=== PATIENT | female | born 1995 | race American Indian/Alaskan Native ===

== ENCOUNTER 2017-10-01 16:23 | Emergency (ER) | payer OTHER ==
[2017-10-01 16:58] VITALS: BP 117/88
[2017-10-01 17:43] LABS: Bacteria,Urine 1+ /HPF (Negative); Bilirubin,Urine NEG (Negative); Blood,Urine MOD (Negative); Color,Urine Amber (Yellow); Granular Casts,Urine 6 /LPF; Mucus,Urine 3+ /HPF
--- NOTE | 2017-10-01 19:37 | Ultrasound Report ---
FINAL REPORT PROCEDURE: Transabdominal obstetrical ultrasound. TECHNIQUE: Real-time transabdominal sonography of the uterus, placenta, amniotic fluid, adnexa, and fetus was performed with image documentation. Measurements were obtained to determine age/size. M-mode Doppler was used to document heartbeat. CPT 31650 HISTORY: Bleeding and pain with . COMPARISON: No prior studies are available for comparison. FINDINGS: The uterus measures 8.1 centimeters x 4.4 centimeters x 6.1 centimeters. The myometrium appears fairly uniform. There may be a very small intrauterine gestational sac. This should be better evaluated with transvaginal imaging. Neither ovary is identified. There is no fluid in the cul-de-sac. IMPRESSION: Question early intrauterine gestational sac.
--- NOTE | 2017-10-01 19:42 | Ultrasound Report ---
FINAL REPORT PROCEDURE: Transvaginal obstetrical ultrasound. TECHNIQUE: Real-time transvaginal sonography of the uterus, placenta, amniotic fluid, adnexa, and fetus was performed with image documentation. Measurements were obtained to determine age/size. M-mode Doppler was used to document heartbeat. CPT 78032 HISTORY: Bleeding and pain with . COMPARISON: No prior studies are available for comparison. FINDINGS: The uterus appears homogeneous. There is a small intrauterine gestational sac. A yolk sac is visible. A definite pole is not visualized. The mean gestational sac diameter is 6.3 millimeters. This indicates a menstrual age of 5 weeks 2 days. The estimated date of confinement is 06/01/2018. There is no evidence of subchorionic hemorrhage. Both ovaries appear normal in size and demonstrate normal color flow imaging. There is no fluid in the cul-de-sac. IMPRESSION: Very early intrauterine . 2. EDC by US .
[2017-10-01 19:51] LABS: Basophils % (Auto) 0.2 % (0.0-1.8); Eosinophils % (Auto) 0.3 % (0.0-4.3); Hematocrit 34.8 % (30.3-42.9); Hemoglobin 10.9 gm/dl (10.1-14.3); Lymphocytes # (Auto) 1.1 K/mm3 (1.2-5.4); Lymphocytes % (Auto) 11.1 % (13.4-35.0); Mean Corpuscular HGB Conc 31 % (30-34); Monocytes # (Auto) 1.1 K/mm3 (0.0-0.8); Platelet Count 288 K/mm3 (140-440); Red Blood Count 5.01 M/mm3 (3.65-5.03); Red Cell Distribution Width 16.5 % (13.2-15.2)
--- NOTE | 2017-10-01 20:03 | Emergency Department Report ---
ED Female HPI - General Chief complaint: Vaginal Bleeding Stated complaint: /VAGINAL BLEEDING Time Seen by Provider: 10/01/17 19:47 Source: patient Mode of arrival: Ambulatory Limitations: No Limitations - History of Present Illness Initial comments: Patient is 22-year-old -Beninese female A1 patient same 3 days ago in ED workup negative for STI positive for last menstrual period 5 weeks ago presents today for dysuria frequency and urgency denies new vaginal discharge and states some pink spotting no fever no chills no nausea no vomiting no back pain denies likelihood of STI MD Complaint: dysuria Onset/Timin -: week(s) Severity: moderate Severity scale (0 -10): 3 Quality: cramping Consistency: intermittent Improves with: none Worsens with: urination Are you Now?: Yes Last Menstrual Period: 08/18/17 EDC: 05/25/18 Associated Symptoms: dysuria. denies: fever/chills - Related Data Sexually active: Yes : 2 Para: 0 A: 1 (miscarriage 1 yr ago ) Previous Rx's Medication Instructions Recorded Last Taken Type Nitrofurantoin Monohyd/M-Cryst 100 mg PO BID #14 capsule 10/01/17 Unknown Rx [Macrobid 100 mg Capsule] Allergies Allergy/AdvReac Type Severity Reaction Status Date / Time No Known Allergies Allergy Unverified 10/01/17 16:58 ED Review of Systems ROS: Stated complaint: /VAGINAL BLEEDING Other details as noted in HPI Constitutional: denies: chills, fever Eyes: denies: eye pain, eye discharge, vision change ENT: denies: ear pain, throat pain Respiratory: denies: cough, shortness of breath, wheezing Cardiovascular: denies: chest pain, palpitations Endocrine: no symptoms reported Gastrointestinal: denies: abdominal pain, nausea, diarrhea Genitourinary: dysuria, frequency, hematuria. denies: urgency, discharge, abnormal menses, dyspareunia Musculoskeletal: denies: back pain, joint swelling, arthralgia Skin: denies: rash, lesions Neurological: denies: headache, weakness, paresthesias Psychiatric: denies: anxiety, depression Hematological/Lymphatic: denies: easy bleeding, easy bruising ED Past Medical Hx - Past Medical History Previous Medical History?: No - Social History Smoking Status: Current Every Day Smoker Substance Use Type: None - Medications Home Medications: Home Medications Medication Instructions Recorded Confirmed Last Taken Type Nitrofurantoin Monohyd/M-Cryst 100 mg PO BID #14 capsule 10/01/17 Unknown Rx [Macrobid 100 mg Capsule] ED Physical Exam - General Limitations: No Limitations General appearance: alert, in no apparent distress - Head Head exam: Present: atraumatic, normocephalic - Eye Eye exam: Present: normal appearance - ENT ENT exam: Present: mucous membranes moist - Neck Neck exam: Present: normal inspection - Respiratory Respiratory exam: Present: normal lung sounds bilaterally. Absent: respiratory distress - Cardiovascular Cardiovascular Exam: Present: regular rate, normal rhythm. Absent: systolic murmur, diastolic murmur, rubs, gallop - GI/Abdominal GI/Abdominal exam: Present: soft, normal bowel sounds. Absent: distended, tenderness, guarding, rebound, rigid, mass, bruit, pulsatile mass, hernia - Rectal Rectal exam: Present: deferred - External exam: Present: other (exam deferred per patient) - Extremities Exam Extremities exam: Present: normal inspection - Back Exam Back exam: Present: normal inspection, full ROM. Absent: tenderness, CVA tenderness (R), CVA tenderness (L), muscle spasm, paraspinal tenderness, vertebral tenderness, rash noted - Neurological Exam Neurological exam: Present: alert, oriented X3, CN II-XII intact, normal gait, reflexes normal - Psychiatric Psychiatric exam: Present: normal affect, normal mood - Skin Skin exam: Present: warm, dry, intact, normal color. Absent: rash ED Course Vital Signs 10/01/17 16:54 Temperature 99.3 F Pulse Rate 98 H Respiratory 18 Rate Blood Pressure 117/88 O2 Sat by Pulse 99 Oximetry ED Medical Decision Making - Lab Data Result diagrams: 10/01/17 19:33 Laboratory Tests 10/01/17 10/01/17 10/01/17 17:04 17:04 17:08 [place] % (Auto) Eos % (Auto) [place] # Eos # Baso # Seg Neutrophils % Seg Neutrophils # HCG, Quant 3284 H Urine Color [place] Urine Turbidity Clear Urine pH 5.0 Ur Specific [place] 1.031 H Urine Protein 100 mg/dl Urine Glucose (UA) Neg Urine Ketones 20 Urine Blood Mod Urine Nitrite Neg Urine Bilirubin Neg Urine Urobilinogen 4.0 Ur Leukocyte Esterase Mod Urine WBC (Auto) 16.0 H Urine RBC (Auto) 20.0 U Epithel Cells (Auto) 8.0 Urine Bacteria (Auto) 1+ Granular Casts 6 Urine Mucus 3+ Blood Type O POSITIVE 10/01/17 19:33 [place] % (Auto) 11.0 H Eos % (Auto) 0.3 [place] # 1.1 H Eos # 0.0 Baso # 0.0 Seg Neutrophils % 77.4 H Seg Neutrophils # 7.5 HCG, Quant Urine Color Urine Turbidity Urine pH Ur Specific [place] Urine Protein Urine Glucose (UA) Urine Ketones Urine Blood Urine Nitrite Urine Bilirubin Urine Urobilinogen Ur Leukocyte Esterase Urine WBC (Auto) Urine RBC (Auto) U Epithel Cells (Auto) Urine Bacteria (Auto) Granular Casts Urine Mucus Blood Type - Radiology Data Radiology results: report reviewed, image reviewed US single IUP, Gest age 5w, 6 days - Medical Decision Making This is a UTI during plan Macrobid 7 days follow-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 ED Disposition Clinical Impression: UTI (urinary tract infection) during Qualifiers: Trimester: first trimester Qualified Code(s): O23.41 - Unspecified infection of urinary tract in , first trimester Disposition: DC-01 TO HOME OR SELFCARE Is pt being admited?: No Does the pt Need Aspirin: No Condition: Good Instructions: Urinary Tract Infection in Women (ED) Prescriptions: Nitrofurantoin Monohyd/M-Cryst [Macrobid 100 mg Capsule] 100 mg PO BID #14 capsule Referrals: ARVIN MARVIN MD [Staff Physician] - 3-5 Days Forms: Work/School Release Form(ED) Time of Disposition: 20:08
[2017-10-01 20:05] LABS: Mean Corpuscular Hemoglobin 22 pg (28-32); Mean Corpuscular Volume 70 fl (79-97)
== END 2017-10-01 20:10 | disposition home or self-care (01) ==
LOC: ED 16:23
DX: O23.41 Unspecified infection of urinary tract in pregnancy, first trimester (principal); Z3A.01 Less than 8 weeks gestation of pregnancy; O99.331 Smoking (tobacco) complicating pregnancy, first trimester
CPT/HCPCS: 36415; 76801; 76817; 81001; 84702; 85025; 86900; 86901; 99284

== ENCOUNTER 2017-11-28 17:37 | Emergency (ER) | payer OTHER ==
[2017-11-28 17:48] VITALS: BP 121/80
[2017-11-28 18:29] LABS: Bilirubin,Urine NEG (Negative); Blood,Urine NEG (Negative); Color,Urine Yellow (Yellow); Mucus,Urine 3+ /HPF; RBC,Urine < 1.0 /HPF (0.0-6.0); Urobilinogen,Urine < 2.0 mg/dL (<2.0)
[2017-11-28 18:52] LABS: Basophils % (Auto) 0.4 % (0.0-1.8); Eosinophils # (Auto) 0.1 K/mm3 (0.0-0.4); Eosinophils % (Auto) 0.6 % (0.0-4.3); Hematocrit 35.8 % (30.3-42.9); Hemoglobin 11.3 gm/dl (10.1-14.3); Lymphocytes # (Auto) 1.6 K/mm3 (1.2-5.4); Lymphocytes % (Auto) 16.4 % (13.4-35.0); Mean Corpuscular HGB Conc 32 % (30-34); Monocytes # (Auto) 0.8 K/mm3 (0.0-0.8); Monocytes % (Auto) 8.2 % (0.0-7.3); Platelet Count 279 K/mm3 (140-440); Red Cell Distribution Width 17.2 % (13.2-15.2)
[2017-11-28 19:05] LABS: Mean Corpuscular Volume 69 fl (79-97)
[2017-11-28 19:06] LABS: Mean Corpuscular Hemoglobin 22 pg (28-32)
[2017-11-28 19:35] LABS: Alanine Aminotransferase 11 units/L (7-56); Albumin 4.5 g/dL (3.9-5); BUN/Creatinine Ratio 18; Blood Urea Nitrogen 11 mg/dL (7-17); Calcium 9.9 mg/dL (8.4-10.2); Hemolysis Index 0
== END 2017-11-29 01:26 | disposition left against medical advice (07) ==
LOC: ED 17:37
DX: R07.9 Chest pain, unspecified (principal); Z53.21 Procedure and treatment not carried out due to patient leaving prior to being seen by health care provider
CPT/HCPCS: 36415; 80053; 81001; 84702; 85025

== ENCOUNTER 2018-05-24 02:47 | Inpatient (IN) | payer OTHER ==
[2018-05-24] MEDS ORDERED: LACTATED RINGERS 1,000 ML ONE (03:37)
[2018-05-24] MEDS ORDERED: MINERAL OIL PO PRN (03:53)
[2018-05-24] MEDS ORDERED: BRETHINE IVP PRN (03:53)
[2018-05-24] MEDS ORDERED: BRETHINE SUB-Q PRN (03:53)
[2018-05-24] MEDS ORDERED: XYLOCAINE 2% INFILTRATI ONE (03:53)
[2018-05-24] MEDS ORDERED: STADOL IV PRN (03:53)
[2018-05-24] MEDS ORDERED: PEPCID IV ONE (03:55)
[2018-05-24] MEDS ORDERED: PITOCin/NS 20 UNIT/1000ML DRIP 20 UNITS/1,000 ML BAG IV SCH (04:00)
[2018-05-24] MEDS ORDERED: PITOCin/NS 30 UNIT/500ML 30 UNITS/500 ML BAG IV SCH (04:00)
[2018-05-24] MEDS: LACTATED RINGERS 1,000 ML IV SCH ×2 (04:21→11:08)
[2018-05-24] MEDS ORDERED: ZOFRAN IV PRN ×2 (04:27→16:04)
[2018-05-24] MEDS ORDERED: ZOFRAN ONE (04:31)
[2018-05-24 04:45] LABS: Hemoglobin 8.7 gm/dl (10.1-14.3); Mean Corpuscular HGB Conc 32 % (30-34); Platelet Count 192 K/mm3 (140-440); Red Blood Count 4.14 M/mm3 (3.65-5.03); Red Cell Distribution Width 18.1 % (13.2-15.2)
[2018-05-24 04:51] LABS: Mean Corpuscular Volume 65 fl (79-97)
[2018-05-24] MEDS ORDERED: BENADRYL IV PRN (07:18)
[2018-05-24] MEDS ORDERED: fentaNYL-BUPIV 2 MCG/ML-0.125% 200 MCG/100 ML BAG EPIDURAL ONE (11:05)
[2018-05-24] MEDS ORDERED: XYLOCAINE 2%/ EPI 1:200,000 INFILTRATI ONE (11:54)
[2018-05-24] MEDS ORDERED: SUBLIMAZE ONE (11:54)
--- NOTE | 2018-05-24 12:14 | History and Physical Report ---
History of Present Illness Date of examination: 05/24/18 Date of admission: 05/24/18 03:54 Chief complaint: My water broke History of present illness: 22 yo AA fe , RUCHI 06/02/18 (LMP), 38w5d, presents to L&D with c/o SROM 05/24/18 at 01:20 am. Pt initiated care with life Cycle Inspector Automatic Typewriter 9w4d. Early complicated with N&V and UTI (HELEN Negative 01/18/18). Pt taking FeS04 for anemia and D3 for Vit D deficiency. Otherwise, uneventful. O positive, GBS negative, Rubella Immune. 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 denies: smoking, alcohol abuse, prescription drug abuse, IV drug use - Obstetrical History Expected Date of Delivery: 06/02/18 Actual Gestation: 38 Week(s) 5 Day(s) : 2 Para: 0 Hx # Term Pregnancies: 0 Number of Pregnancies: 0 Spontaneous Abortions: 1 Induced : 0 Number of Living Children: 0 Medications and Allergies Allergies Allergy/AdvReac Type Severity Reaction Status Date / Time No Known Allergies Allergy Unverified 10/01/17 16:58 Home Medications Medication Instructions Recorded Confirmed Last Taken Type Metoclopramide HCl [Reglan TAB] 5 mg PO TIDAC PRN 10 Days #30 03/22/18 Unknown Rx tablet Ondansetron [Zofran ODT TAB] 8 mg PO Q8HR PRN 10 Days #30 03/22/18 Unknown Rx tab.rapdis Ondansetron [Zofran TAB] 4 mg PO Q8HR PRN 03/22/18 03/22/18 03/20/18 History Active Meds: Active Medications Butorphanol Tartrate (Stadol) 2 mg IV Q2H PRN PRN Reason: Pain , Severe (7-10) Last Admin: 05/24/18 06:52 Dose: 2 mg Documented by: Diphenhydramine HCl (Benadryl) 25 mg IV Q6H PRN PRN Reason: Itching Ephedrine Sulfate (Ephedrine Sulfate) 10 mg IV Q2M PRN PRN Reason: Hypotension Lactated Ringer's (Lactated Ringers) 1,000 mls @ 125 mls/hr IV DIRECT IBRAHIMA Last Admin: 05/24/18 11:08 Dose: 125 mls/hr Documented by: Oxytocin/Sodium Chloride (Pitocin/Ns 20 Unit/1000ml Drip) 20 units in 1,000 mls @ 125 mls/hr IV DIRECT IBRAHIMA Oxytocin/Sodium Chloride (Pitocin/Ns 30 Unit/500ml) 30 units in 500 mls @ 1 mls/hr IV TITR IBRAHIMA; Protocol Last Titration: 05/24/18 09:45 Dose: 6 mls/hr, 6 mls/hr Documented by: Mineral Oil (Mineral Oil) 30 ml PO QHS PRN PRN Reason: Constipation Ondansetron HCl (Zofran) 4 mg IV Q8H PRN PRN Reason: Nausea And Vomiting Last Admin: 05/24/18 09:30 Dose: 4 mg Documented by: Terbutaline Sulfate (Brethine) 0.25 mg SUB-Q ONCE PRN PRN Reason: Hyperstimulation/Hypertonicity Terbutaline Sulfate (Brethine) 0.25 mg IVP ONCE PRN PRN Reason: Hyperstimulation/Hypertonicity Review of Systems Cardiovascular: no chest pain, no shortness of breath, no high blood pressure Respiratory: no cough, no shortness of breath Breasts: normal Gastrointestinal: no abdominal pain, no nausea, no vomiting, no diarrhea, no constipation Genitourinary: normal appearance, leakage of fluid, contractions (occasional ) Integumentary: no rash, no sores, no lesions - Vital Signs Vital signs: Vital Signs Pulse BP 72 127/81 05/24/18 03:06 05/24/18 03:06 Temp Pulse Resp BP Pulse Ox 98.1 F 66 20 129/71 92 05/24/18 08:53 05/24/18 12:08 05/24/18 06:00 05/24/18 11:30 05/24/18 12:08 - Physical Exam Breasts: Positive: normal Cardiovascular: Regular rate, Normal S1, Normal S2, No murmurs Lungs: Positive: Clear to auscultation, Normal air movement Abdomen: Positive: normal appearance, soft, normal bowel sounds. Negative: distention, tenderness Genitourinary (Female): Positive: normal external genitalia, normal perenium Vulva: both: normal Vagina: Positive: other (leaking clear fluid) Uterus: Positive: enlarged (gravid) Anus/Rectum: Positive: normal perianal skin Extremities: Positive: normal Deep Tendon Reflex Grade: Normal +2 - Obstetrical FHR: category 1 Uterine Contraction Monitor Mode: External Cervical Dilatation: 3 (Per RN at last exam) Cervical Effacement Percentage: 75 station: -2 Uterine Contraction Pattern: Irregular Uterine Tone Measurement Phase: Resting Uterine Contraction Intensity: Moderate Results Result Diagrams: 05/24/18 03:47 Abnormal lab results 05/24/18 Range/Units 03:47 Hgb 8.7 L (10.1-14.3) gm/dl Hct 27.0 L (30.3-42.9) % MCV 65 L (79-97) fl MCH 21 L (28-32) pg RDW 18.1 H (13.2-15.2) % All other labs normal. Assessment and Plan A: Term IUP at 38w5d Asymptomatic Anemia Category 1 tracing GBS Negative SROM 05/24/18 @ 01:20, clear fluid P: Admit to L&D; Routine labor orders Pitocin Augmentation May have IV pain med/epidural PRN Anticipate
[2018-05-24] MEDS ORDERED: NARCAN 2 MG/2 ML IV PRN (12:22)
--- NOTE | 2018-05-24 12:24 | Anesthesia Consultation ---
Anesthesia Consult and Med Hx Date of service: 05/24/18 - Airway Anesthetic Teeth Evaluation: Good ROM Head & Neck: Adequate Mental/Hyoid Distance: Adequate Mallampati Class: Class I Intubation Access Assessment: Good - Pulmonary Exam CTA: Yes - Cardiac Exam Cardiac Exam: RRR - Pre-Operative Health Status ASA Pre-Surgery Classification: ASA2 Proposed Anesthetic Plan: Epidural - Pulmonary Hx Smoking: No Hx Asthma: No - Cardiovascular System Hx Hypertension: No Hx Coronary Artery Disease: No Hx Cardia Arrhythmia: No - Central Nervous System Hx Neuromuscular Disorder: No Hx Seizures: No Hx Psychiatric Problems: No - Gastrointestinal Hx Ulcer: No - Endocrine Hx Renal Disease: No Hx Insulin Dependent Diabetes: No Hx Non-Insulin Dependent Diabetes: No Hx Hypothyroidism: No Hx Hyperthyroidism: No - Hematic Hx Anemia: Yes Hx Sickle Cell Disease: No - Other Systems Hx Alcohol Use: No Hx Obesity: No
[2018-05-24] MEDS ORDERED: fentaNYL-BUPIV 2 MCG/ML-0.125% 200 MCG/100 ML BAG EPIDURAL SCH (13:00)
[2018-05-24] MEDS ORDERED: DERMOPLAST TP PRN (16:04)
[2018-05-24] MEDS ORDERED: BENADRYL PO PRN (16:04)
[2018-05-24] MEDS ORDERED: TYLENOL PO PRN (16:04)
[2018-05-24] MEDS ORDERED: ANUCORT-HC PR PRN (16:04)
[2018-05-24] MEDS ORDERED: LANSINOH TP PRN (16:04)
[2018-05-24] MEDS ORDERED: DULCOLAX PR PRN (16:04)
[2018-05-24] MEDS ORDERED: PHENERGAN PO PRN (16:04)
[2018-05-24] MEDS ORDERED: NORCO 5/325 PO PRN (16:04)
[2018-05-24] MEDS ORDERED: MILK OF MAGNESIA PO PRN (16:04)
--- NOTE | 2018-05-24 16:15 | Procedure Note ---
OB Delivery Note - Delivery Date of Delivery: 05/24/18 (15:42) Surgeon: SWATHI ANN (AMALIA) Estimated blood loss: 100cc - Vaginal Delivery presentation: vertex Delivery position: OA Intrapartum events: mult.variable deceleratio Delivery induction: none Delivery augmentation: pitocin Delivery monitor: external FHT, external uterine Route of delivery: (15:42) Delivery placenta: spontaneous (15:49) Delivery cord: 3 umbilical vessels Episiotomy: none Delivery laceration: 1st degree (small first degree; approximates well; left unrepaired) Anesthesia: epidural Delivery comments: viable female infant MAXINE position at 15:42. NICU and RT present at at time of delivery for repetitive variable decels. Loud lusty cry. placed [id number] and NICU/RT dismissed. Delayed cord clamping, then cut by pt mother with my guidance. Cord blood collected per hospital protocol. Spontaneous philip delivery of intact placenta at 15:49. Discarded. Small 1st degree laceration, approximates well; left unrepaired. FF@U-2. Small lochia. EBL 100cc. and mother left in stable condition in L&D. - A at 1 minute: 8 at 5 minutes: 9 Gender: Female (4lbs 15lbs, 2233grams, 18")
[2018-05-24] MEDS ORDERED: SODIUM CHLORIDE FLUSH SYRINGE 10 ML IV NR (17:00)
--- NOTE | 2018-05-24 21:35 | Post Anesthesia Evaluation ---
- Post Anesthesia Evaluation Patient Participated: Yes Airway Patent: Yes Stable Respiratory Function: Yes Nausea/Vomiting: No Temp > 96.8F: Yes Pain Manageable: Yes Adequeate Hydration: Yes Anesthesia Complications: No Block Receding Appropriately: Yes Patient on Ventilator: No
[2018-05-25] MEDS: TUCKS PAD TP PRN
[2018-05-25] MEDS: IBUPROFEN PO SCH ×3 (05:34→23:31)
[2018-05-25 05:41] LABS: Hematocrit 24.8 % (30.3-42.9); Hemoglobin 7.8 gm/dl (10.1-14.3)
--- NOTE | 2018-05-25 09:48 | Progress Note ---
Assessment and Plan A: 22 yo, , PPD 1 Anemia Vit D deficiency P: Continue PP orders Infed 100 mg IM x 1 dose Iron 325 mg po tid D/C home tomorrow Subjective - Subjective Date of service: 05/25/18 Principal diagnosis: Patient reports: appetite normal, voiding normally, pain well controlled, ambulating normally : doing well, other (and breast feeding), bottle feeding Objective - Vital Signs Latest vital signs: Vital Signs Temp Pulse Resp BP BP Pulse Ox 05/25/18 01:20 98.2 F 60 20 125/72 97 05/25/18 00:00 20 05/24/18 21:25 98.0 F 73 20 122/69 99 05/24/18 18:15 98.1 F 62 18 128/79 05/24/18 17:57 64 99 05/24/18 17:14 68 127/63 05/24/18 17:00 63 138/65 05/24/18 16:45 63 143/65 05/24/18 15:32 123 H 139/63 05/24/18 15:16 67 119/58 05/24/18 15:00 72 131/65 05/24/18 14:44 86 124/56 05/24/18 14:31 93 H 116/62 05/24/18 14:15 74 114/59 05/24/18 13:58 75 105/55 05/24/18 13:54 73 107/54 05/24/18 13:48 81 118/55 05/24/18 13:40 100 H 113/56 05/24/18 13:34 88 120/61 05/24/18 13:28 129 H 122/57 05/24/18 13:21 88 84 05/24/18 13:19 95 H 91 05/24/18 13:18 107 H 117/58 05/24/18 13:15 53 L 75 L 05/24/18 13:12 139 H 168/62 05/24/18 13:10 101 H 124/55 82 L 05/24/18 13:08 87 92/55 05/24/18 13:07 78 107/53 0 L 05/24/18 13:05 94 H 100 05/24/18 13:02 99 H 78 L 05/24/18 13:00 82 153/65 100 05/24/18 12:59 114 H 167/63 05/24/18 12:56 95 H 109/52 05/24/18 12:55 88 116/58 100 05/24/18 12:54 107 H 123/61 05/24/18 12:52 76 118/58 05/24/18 12:50 103 H 113/60 05/24/18 12:49 100 H 85 05/24/18 12:48 73 112/59 05/24/18 12:47 82 99 05/24/18 12:46 58 L 117/65 05/24/18 12:44 100 H 113/68 05/24/18 12:42 76 118/70 99 05/24/18 12:41 79 72 L 05/24/18 12:40 59 L 111/66 05/24/18 12:38 71 118/72 05/24/18 12:37 108 H 100 05/24/18 12:36 100 H 111/69 05/24/18 12:34 80 124/66 05/24/18 12:32 72 117/72 100 05/24/18 12:30 78 124/72 05/24/18 12:28 90 113/60 05/24/18 12:27 83 98 05/24/18 12:26 113 H 111/68 05/24/18 12:24 93 H 122/72 05/24/18 12:22 94 H 114/68 100 05/24/18 12:20 115 H 123/82 05/24/18 12:18 108 H 117/59 05/24/18 12:17 110 H 98 05/24/18 12:16 74 124/57 05/24/18 12:15 103 H 92 05/24/18 12:12 82 100 05/24/18 12:08 66 92 05/24/18 12:07 83 100 05/24/18 12:02 78 97 05/24/18 11:30 71 129/71 05/24/18 10:31 61 140/72 Intake and Output 05/24/18 05/25/18 05/25/18 23:59 07:59 15:59 Intake Total 480 Output Total 300 Balance -300 480 Intake: Oral 480 Output: Urine 300 Void 300 Other: Total, Intake Amount 240 Total, Output Amount 300 # Voids Void 300 1 Estimated Blood Loss 100 - Exam Breasts: Present: normal Cardiovascular: Present: Regular rate, Normal S1, Normal S2 Lungs: Present: Clear to auscultation, Normal air movement Abdomen: Present: normal appearance, normal bowel sounds Uterus: Present: firm, fundal height below umbilicus (U-2) Extremities: Present: normal Deep Tendon Reflex Grade: Normal +2 - Labs Labs: Abnormal lab results 05/25/18 Range/Units 05:27 Hgb 7.8 L (10.1-14.3) gm/dl Hct 24.8 L (30.3-42.9) %
--- NOTE | 2018-05-25 09:58 | Discharge Summary ---
<JAJA HOFFMAN - Last Filed: 05/25/18 09:54> Providers - Providers Date of Admission: 05/24/18 03:54 Date of discharge: 05/26/18 Attending physician: CRISTHIAN FINE MD Primary care physician: CRISTHIAN FINE MD Hospitalization Delivery: Episiotomy: none Laceration: 1st degree complications: other (Anemia) Discharge diagnosis: IUP at term delivered [place] baby: female Hospital course: See Admission H&P; OB delivery summary and; PP notes Condition at discharge: Stable Disposition: DC-01 TO HOME OR SELFCARE - Discharge Diagnoses (1) Anemia Status: Acute (2) (normal spontaneous vaginal delivery) Status: Acute Plan - Provider Discharge Summary Activity: routine, no sex for 6 weeks, no heavy lifting 4 weeks, no strenuous exercise Diet: routine Instructions: routine (Continue Iron by mouth three times per day with OJ at home following discharge.) Additional instructions: [] Smoking cessation referral if applicable(refer to patient education folder for contact #) [] Refer to [facility] Booklet Call your doctor immediately for: * Fever > 100.5 * Heavy vaginal bleeding ( >1 pad per hour) * Severe persistent headache * Shortness of breath * Reddened, hot, painful area to leg or breast * Drainage or odor from incision. * Keep incision clean and dry at all times and follow doctor's instructions regarding bathing/showering - Follow up plan Follow up: CRISTHIAN FINE MD [Primary Care Provider] - 6 Weeks <ADAM PUGH - Last Filed: 06/02/18 14:40> Providers - Providers Date of Admission: 05/24/18 03:54 Attending physician: CRISTHIAN FINE MD Primary care physician: CRISTHIAN FINE MD Hospitalization - Discharge Diagnoses (1) Anemia associated with acute blood loss Status: Acute (2) Anemia Status: Acute Plan - Provider Discharge Summary Additional instructions: [] Smoking cessation referral if applicable(refer to patient education folder for contact #) [] Refer to [facility] Booklet Call your doctor immediately for: * Fever > 100.5 * Heavy vaginal bleeding ( >1 pad per hour) * Severe persistent headache * Shortness of breath * Reddened, hot, painful area to leg or breast * Drainage or odor from incision. * Keep incision clean and dry at all times and follow doctor's instructions regarding bathing/showering
[2018-05-25] MEDS ORDERED: INFED IM NR (10:30)
[2018-05-25] MEDS: FEOSOL PO SCH ×2 (13:23→23:31)
[2018-05-25] MEDS: COLACE PO SCH (23:31)
[2018-05-26] MEDS: IBUPROFEN PO SCH ×3 (05:26→17:30)
[2018-05-26] MEDS: COLACE PO SCH ×2 (10:00→10:30)
[2018-05-26] MEDS: FEOSOL PO SCH ×2 (10:00→10:30)
[2018-05-26] MEDS: TUCKS PAD TP PRN ×2 (14:00→14:01)
[2018-05-26 17:49] VITALS: BP 117/63
== END 2018-05-26 18:15 | disposition home or self-care (01) | DRG 775 ==
LOC: TRG 02:47 → LD 03:54 → TRG 03:54 → OB 18:18
PROVIDERS: ADMIT Obstetrics & Gynecology; ATTEND Obstetrics & Gynecology
PROC: 10E0XZZ Delivery of Products of Conception, External Approach (ICD-10-PCS; principal; 2018-05-24)
PROC: 3E0R3BZ Introduction of Anesthetic Agent into Spinal Canal, Percutaneous Approach (ICD-10-PCS; 2018-05-24)
PROC: 00HU33Z Insertion of Infusion Device into Spinal Canal, Percutaneous Approach (ICD-10-PCS; 2018-05-24)
DX: O76 Abnormality in fetal heart rate and rhythm complicating labor and delivery (principal); Z3A.38 38 weeks gestation of pregnancy; Z37.0 Single live birth; D64.9 Anemia, unspecified; O99.02 Anemia complicating childbirth; Z83.3 Family history of diabetes mellitus; Z82.49 Family history of ischemic heart disease and other diseases of the circulatory system; E55.9 Vitamin D deficiency, unspecified; O99.284 Endocrine, nutritional and metabolic diseases complicating childbirth; O70.0 First degree perineal laceration during delivery
CPT/HCPCS: 36415; 85014; 85018; 85027; 86592; 86850; 86900; 86901; G0378; J0595; J1200; J1750; J2405; J2590; J3010; J7120

== ENCOUNTER 2018-05-30 22:05 | Inpatient (IN) | payer OTHER ==
--- NOTE | 2018-05-30 23:09 | Emergency Department Report ---
ED General Adult HPI - General Chief complaint: Chest Pain Stated complaint: HBP/ALVARADO/BACK PAIN/CP Time Seen by Provider: 05/30/18 22:34 Source: patient Mode of arrival: Ambulatory Limitations: No Limitations - History of Present Illness Initial comments: Patient is 22 years old female. 2 para 1. Patient is 6 days status post normal spontaneous vaginal delivery. Patient presented to the ER complaining of headache since yesterday associated with increased blood pressure patient stated that she's been taking her blood pressure has been in range of 130-150/90-98. Patient also is complaining of lower back pain. Patient also complaint of chest pain that comes and goes. Patient denied any fever, chills, nausea or vomiting. No weakness numbness or tingling sensation. Severity scale (0 -10): 4 - Related Data Home Medications Medication Instructions Recorded Confirmed Last Taken Ondansetron [Zofran TAB] 4 mg PO Q8HR PRN 03/22/18 05/24/18 1 Day Ago ~05/23/18 Previous Rx's Medication Instructions Recorded Last Taken Type Metoclopramide HCl [Reglan TAB] 5 mg PO TIDAC PRN 10 Days #30 03/22/18 1 Day Ago Rx tablet ~05/23/18 Ondansetron [Zofran ODT TAB] 8 mg PO Q8HR PRN 10 Days #30 03/22/18 2 Days Ago Rx tab.rapdis ~05/22/18 Ferrous Sulfate [Feosol 325 MG tab] 325 mg PO BID tablet 05/25/18 Unknown Rx Allergies Allergy/AdvReac Type Severity Reaction Status Date / Time No Known Allergies Allergy Unverified 10/01/17 16:58 ED Review of Systems ROS: Stated complaint: HBP/ALVARADO/BACK PAIN/CP Other details as noted in HPI Comment: All other systems reviewed and negative Constitutional: denies: chills, fever Respiratory: denies: cough, orthopnea, shortness of breath, SOB with exertion, SOB at rest Cardiovascular: chest pain. denies: palpitations, dyspnea on exertion Gastrointestinal: denies: abdominal pain, nausea, vomiting, diarrhea, constipation, hematemesis, melena, hematochezia Musculoskeletal: back pain Neurological: headache. denies: weakness, numbness, paresthesias, confusion, abnormal gait ED Past Medical Hx - Past Medical History Previous Medical History?: No Hx Hypertension: No Hx Diabetes: No Hx Deep Vein Thrombosis: No Hx Renal Disease: No Hx Sickle Cell Disease: No Hx Seizures: No Hx Asthma: No Hx HIV: No - Surgical History Past Surgical History?: No - Social History Smoking Status: Never Smoker Substance Use Type: None - Medications Home Medications: Home Medications Medication Instructions Recorded Confirmed Last Taken Type Metoclopramide HCl [Reglan TAB] 5 mg PO TIDAC PRN 10 Days #30 03/22/18 05/24/18 1 Day Ago Rx tablet ~05/23/18 Ondansetron [Zofran ODT TAB] 8 mg PO Q8HR PRN 10 Days #30 03/22/18 05/24/18 2 Days Ago Rx tab.rapdis ~05/22/18 Ondansetron [Zofran TAB] 4 mg PO Q8HR PRN 03/22/18 05/24/18 1 Day Ago History ~05/23/18 Ferrous Sulfate [Feosol 325 MG tab] 325 mg PO BID tablet 05/25/18 Unknown Rx ED Physical Exam - General Limitations: No Limitations General appearance: alert, in no apparent distress - Head Head exam: Present: atraumatic, normocephalic, normal inspection - Eye Eye exam: Present: normal appearance, PERRL - ENT ENT exam: Present: normal exam, normal orophraynx, mucous membranes moist - Neck Neck exam: Present: normal inspection, full ROM. Absent: tenderness, meningismus, lymphadenopathy, thyromegaly - Respiratory Respiratory exam: Present: normal lung sounds bilaterally. Absent: respiratory distress, wheezes, rales, rhonchi, chest wall tenderness, accessory muscle use, decreased breath sounds, prolonged expiratory - Cardiovascular Cardiovascular Exam: Present: regular rate, normal rhythm, normal heart sounds - GI/Abdominal GI/Abdominal exam: Present: soft, normal bowel sounds. Absent: distended, tenderness, guarding, rebound, rigid, organomegaly, mass, bruit, pulsatile mass, hernia - Extremities Exam Extremities exam: Present: normal inspection, full ROM, normal capillary refill. Absent: pedal edema, calf tenderness - Back Exam Back exam: Present: normal inspection, full ROM. Absent: tenderness, CVA tenderness (R), CVA tenderness (L), muscle spasm, paraspinal tenderness, vertebral tenderness - Neurological Exam Neurological exam: Present: alert, oriented X3, CN II-XII intact, normal gait, reflexes normal - Skin Skin exam: Present: warm, intact, normal color ED Course Vital Signs 05/30/18 05/30/18 05/30/18 22:41 22:44 22:45 Temperature 98 F Pulse Rate 57 L 61 71 Respiratory 16 18 11 L Rate Blood Pressure 145/89 O2 Sat by Pulse 99 100 Oximetry ED Medical Decision Making - Lab Data Result diagrams: 05/30/18 23:04 05/30/18 23:04 - Medical Decision Making Patient is 22 years old female. 2 para 1. Patient is 6 days status post normal spontaneous vaginal delivery. Patient presented to the ER complaining of headache since yesterday associated with increased blood pressure patient stated that she's been taking her blood pressure has been in range of 130-150/90-98. Patient also is complaining of lower back pain. Patient also complaint of chest pain that comes and goes. Patient denied any fever, chills, nausea or vomiting. No weakness numbness or tingling sensation. I discussed the patient is Dr. Jean-Claude Carmona, he advised to admit patient to mother and baby for rule out of preeclampsia. Critical Care Time: Yes Critical care time in (mins) excluding proc time.: 30 Critical care attestation.: If time is entered above; I have spent that time in minutes in the direct care of this critically ill patient, excluding procedure time. ED Disposition Clinical Impression: Preeclampsia, Chest pain, UTI (urinary tract infection) Disposition: OP ADMIT IP TO THIS HOSP Is pt being admited?: Yes Condition: Stable Instructions: Chest Pain (ED), Hypertension (ED) Referrals: RUDOLPH JUAN MD [Primary Care Provider] - 3-5 Days
[2018-05-30 23:41] LABS: Alanine Aminotransferase 19 units/L (7-56); Albumin 3.5 g/dL (3.9-5); BUN/Creatinine Ratio 13; Blood Urea Nitrogen 8 mg/dL (7-17); Calcium 8.7 mg/dL (8.4-10.2); Hemolysis Index 3
[2018-05-31 00:45] LABS: Bacteria,Urine 2+ /HPF (Negative); Bilirubin,Urine NEG (Negative); Blood,Urine LG (Negative); Color,Urine Amber (Yellow); Mucus,Urine 3+ /HPF
[2018-05-31 00:47] LABS: WBC,Urine > 182.0 /HPF (0.0-6.0)
[2018-05-31 00:57] LABS: Basophils % (Auto) 0.2 % (0.0-1.8); Eosinophils % (Auto) 0.2 % (0.0-4.3); Hematocrit 31.9 % (30.3-42.9); Hemoglobin 9.8 gm/dl (10.1-14.3); Lymphocytes # (Auto) 1.2 K/mm3 (1.2-5.4); Lymphocytes % (Auto) 11.3 % (13.4-35.0); Mean Corpuscular HGB Conc 31 % (30-34); Monocytes # (Auto) 1.1 K/mm3 (0.0-0.8); Monocytes % (Auto) 10.5 % (0.0-7.3); Platelet Count 293 K/mm3 (140-440); Red Blood Count 4.73 M/mm3 (3.65-5.03); Red Cell Distribution Width 19.5 % (13.2-15.2)
[2018-05-31 01:00] LABS: Mean Corpuscular Volume 67 fl (79-97)
[2018-05-31] MEDS ORDERED: ROCEPHIN/NS 1 GM/50 ML 1 GM/50 ML BAG IV ONE (01:02)
[2018-05-31] MEDS ORDERED: TYLENOL PO PRN (03:26)
[2018-05-31] MEDS ORDERED: APRESOLINE IV PRN (03:36)
[2018-05-31] MEDS: NORMODYNE PO SCH ×3 (04:32→18:44)
--- NOTE | 2018-05-31 10:20 | History and Physical Report ---
History of Present Illness Date of examination: 05/31/18 Date of admission: 05/31/18 01:09 Chief complaint: Headaches History of present illness: Patient is a 22 years old female 2 para 1 who is status post normal spontaneous vaginal delivery from 05/24/18. She presented to the ER complaining of headache since yesterday associated with increased blood pressure patient stated that she's been taking her blood pressure has been in range of 130-150/90-98. Patient also is complaining of lower back pain. Patient also complaint of chest pain that comes and goes. Patient denied any fever, chills, nausea or vomiting. No weakness numbness or tingling sensation. Headaches have now resolved. Past History Past Medical History: no pertinent history Past Surgical History: no surgical history Social history: no significant social history, single - Obstetrical History : 2 Medications and Allergies Allergies Allergy/AdvReac Type Severity Reaction Status Date / Time No Known Allergies Allergy Unverified 10/01/17 16:58 Home Medications Medication Instructions Recorded Confirmed Last Taken Type Ferrous Sulfate [Feosol 325 MG tab] 325 mg PO TID 05/31/18 05/31/18 1 Day Ago History ~05/30/18 Active Meds: Active Medications Acetaminophen (Tylenol) 650 mg PO Q6H PRN PRN Reason: Pain, Mild (1-3) Hydralazine HCl (Apresoline) 10 mg IV Q2HR PRN PRN Reason: Blood Pressure Ceftriaxone Sodium (Rocephin/Ns 1 Gm/50 Ml) 1 gm in 50 mls @ 100 mls/hr IV Q12H [facility]; Protocol Labetalol HCl (Normodyne) 200 mg PO BID [facility] Last Admin: 05/31/18 04:32 Dose: 200 mg Documented by: Review of Systems All systems: negative - Vital Signs Vital signs: Vital Signs Pulse Resp Pulse Ox 64 15 99 05/30/18 22:40 05/30/18 22:40 05/30/18 22:40 Temp Pulse Resp BP Pulse Ox 97.9 F 80 18 122/82 98 05/31/18 08:28 05/31/18 08:28 05/31/18 08:28 05/31/18 08:28 05/31/18 08:28 - Physical Exam Breasts: Positive: deferred Cardiovascular: Regular rate Abdomen: Positive: normal appearance, soft Uterus: Positive: enlarged Extremities: Positive: normal Results Result Diagrams: 05/30/18 23:04 05/30/18 23:04 Abnormal lab results 05/30/18 05/30/18 05/30/18 Range/Units 23:04 23:04 Unknown Hgb 9.8 L (10.1-14.3) gm/dl MCV 67 L (79-97) fl MCH 21 L (28-32) pg RDW 19.5 H (13.2-15.2) % Lymph % (Auto) 11.3 L (13.4-35.0) % [place] % (Auto) 10.5 H (0.0-7.3) % [place] # 1.1 H (0.0-0.8) K/mm3 Seg Neutrophils % 77.8 H (40.0-70.0) % Seg Neutrophils # 8.2 H (1.8-7.7) K/mm3 Potassium 3.4 L (3.6-5.0) mmol/L Creatinine 0.6 L (0.7-1.2) mg/dL Lactate Dehydrogenase 213 H (91-180) units/L Albumin 3.5 L (3.9-5) g/dL Urine WBC (Auto) > 182.0 H (0.0-6.0) /HPF All other labs normal. Assessment and Plan - Patient Problems (1) Preeclampsia Onset Date: 05/31/18 Current Visit: Yes Status: Acute Plan to address problem: A: Preeclampsia - not likely, but elevated BP's Elevated BP's - improved on Labetolol 200mg BID P: Will continue with BP management Anticipate discharge tomorrow.
[2018-05-31] MEDS ORDERED: ROCEPHIN/NS 1 GM/50 ML 1 GM/50 ML BAG IV SCH ×2 (13:00→14:00)
[2018-06-01] MEDS: NORMODYNE PO SCH ×2 (05:50→09:31)
--- NOTE | 2018-06-01 12:23 | Progress Note ---
Assessment and Plan - Patient Problems (1) Preeclampsia Onset Date: 05/31/18 Current Visit: Yes Status: Acute Plan to address problem: A: Preeclampsia - not likely, but elevated BP's Elevated BP's - improved on Labetolol 200mg BID P: May go home today. Subjective - Subjective Date of service: 06/01/18 Principal diagnosis: Preeclampsia - resolved Interval history: Patient is a 22 years old female 2 para 1 who is status post normal spontaneous vaginal delivery from 05/24/18. She presented to the ER complaining of headache since yesterday associated with increased blood pressure patient stated that she's been taking her blood pressure has been in range of 130-150/90-98. Patient also is complaining of lower back pain. Patient also complaint of chest pain that comes and goes. Patient denied any fever, chills, nausea or vomiting. No weakness numbness or tingling sensation. She was currently on Labetolol 200mg BID and BP's are better controlled. She denies any further headaches or blurred vision. Patient reports: appetite normal, voiding normally, pain well controlled, flatus, ambulating normally, no dizzy ambulation, no nauseated Objective - Vital Signs Latest vital signs: Vital Signs Temp Pulse Pulse Resp BP BP Pulse Ox 06/01/18 12:05 98.9 F 57 L 24 142/67 142/69 99 06/01/18 10:00 61 16 06/01/18 09:31 61 138/89 06/01/18 08:05 98.0 F 62 20 139/89 99 06/01/18 08:04 98.0 F 62 20 139/89 99 06/01/18 05:50 61 107/62 06/01/18 04:05 98.4 F 54 L 18 143/76 100 06/01/18 00:00 98.1 F 65 18 136/77 97 05/31/18 23:48 73 136/77 100 05/31/18 20:05 98.4 F 64 18 134/71 96 05/31/18 16:54 98.7 F 78 18 144/83 98 05/31/18 16:25 98.7 F 78 18 144/83 100 Intake and Output 05/31/18 06/01/18 06/01/18 22:59 06:59 14:59 Intake Total 960 240 440 Output Total 300 Balance 960 -60 440 Intake: Oral 240 240 440 Intake, Free Water 720 Output: Urine 300 Void 300 Other: Total, Intake Amount 240 240 440 Total, Output Amount 300 Voiding Method Toilet # Voids Void 3 1 - Exam Abdomen: Present: normal appearance, soft Uterus: Present: normal, firm, fundal height below umbilicus
[2018-06-01 12:26] VITALS: BP 142/69
--- NOTE | 2018-06-01 12:31 | Discharge Summary ---
Providers - Providers Date of Admission: 05/31/18 01:09 Date of discharge: 06/01/18 Attending physician: CRISTHIAN FINE MD Primary care physician: CRISTHIAN FIEN MD Hospitalization Reason for admission: other (Suspected preeclampsia; Headaches) Other procedures: none complications: none Hospital course: Patient is a 22 years old female 2 para 1 who is status post normal spontaneous vaginal delivery from 05/24/18. She presented to the ER complaining of headache x 2 days associated with increased blood pressure - patient stated that she's been taking her blood pressure has been in range of 130-150/90-98. Patient also is complaining of lower back pain. Patient also complaint of chest pain that comes and goes. Patient denied any fever, chills, nausea or vomiting. No weakness numbness or tingling sensation. She was currently on Labetolol 200mg BID and BP's are better controlled. She denies any further headaches or blurred vision, and will therefore be discharged to home today in stable condition. Condition at discharge: Good Disposition: DC-01 TO HOME OR SELFCARE - Discharge Diagnoses (1) Preeclampsia Status: Resolved Plan - Discharge Medications Prescriptions: Labetalol [Normodyne TAB] 200 mg PO BID #60 tablet - Provider Discharge Summary Activity: routine, no sex for 6 weeks, no heavy lifting 4 weeks, no strenuous exercise Diet: routine Instructions: routine Additional instructions: [] Smoking cessation referral if applicable(refer to patient education folder for contact #) [] Refer to [facility]'s [facility] Booklet Call your doctor immediately for: * Fever > 100.5 * Heavy vaginal bleeding ( >1 pad per hour) * Severe persistent headache * Shortness of breath * Reddened, hot, painful area to leg or breast * Drainage or odor from incision. * Keep incision clean and dry at all times and follow doctor's instructions regarding bathing/showering Follow up in the office in 1 week for BP check - Follow up plan Follow up: RUDOLPH JUAN MD [Referring] - 3-5 Days CRISTHIAN FINE MD [Primary Care Provider] - 7 Days
== END 2018-06-01 13:45 | disposition home or self-care (01) | DRG 776 ==
LOC: ED 22:05 → OB 05-31 01:09
PROVIDERS: ADMIT Obstetrics & Gynecology; ATTEND Obstetrics & Gynecology
DX: O14.95 Unspecified pre-eclampsia, complicating the puerperium (principal); O86.20 Urinary tract infection following delivery, unspecified; Z79.899 Other long term (current) drug therapy
CPT/HCPCS: 36415; 80053; 81001; 83615; 85025; 93005; 93010; 96365; 99291; G0378; J0696

== ENCOUNTER 2018-06-05 11:53 | Inpatient (IN) | payer OTHER ==
[2018-06-05] MEDS ORDERED: NACL 0.9% 500 ML 500 ML IV ONE (12:41)
[2018-06-05] MEDS ORDERED: APRESOLINE IV ONE (12:41)
[2018-06-05] MEDS ORDERED: SUBLIMAZE IV ONE (12:41)
[2018-06-05] MEDS ORDERED: PEPCID IV ONE (12:42)
--- NOTE | 2018-06-05 12:43 | Emergency Department Report ---
ED General Adult HPI - General Chief complaint: High BP Stated complaint: HPB Time Seen by Provider: 06/05/18 12:09 Source: patient, RN notes reviewed Mode of arrival: Ambulatory Limitations: No Limitations - History of Present Illness Initial comments: This is a 22-year-old female. The patient recently delivered. Patient delivered at this hospital. Patient was admitted to the hospital 4 days ago for hypertension. She was discharged with labetalol, 200 mg twice daily, and reports compliance with this medication. When she was seen here within the past week, she had initial complaint of headache and chest pain and hypertension. Today, the patient presents with the same complaints of headache, chest pain and hypertension. Headache has been present since the patient delivered. The headache is bitemporal, frontal and then global. It is intermittent. It is associated with nonspecific binocular blurry vision and "spots." The headache is not sudden or thunderclap in nature, and it is not maximal in intensity. It has been waxing and waning since she has delivered. Her second complaint is chest pain. The chest pain is central. It is intermittent. It does not radiate to the back, arms or neck. There is no vomiting, diaphoresis or shortness of breath. Patient makes no comment about recent aspirin use. The patient's third complaint is hypertension. She reports a blood pressure of home of 144/103, 144/106, 144/110, 150/107. Patient was admitted to the gynecologic service within the past week for hypertension, and had unremarkable laboratory studies, and was discharged with better blood pressures, and denial of further headaches or blurred vision, as per the discharge summary from the account receivable associate. -: Gradual, days(s) Location: head, chest Radiation: non-radiation Quality: aching Consistency: intermittent Improves with: other (headache has no exacerbating or relieving factors. Chest wall pain increases with palpation and decreases with rest.) Associated Symptoms: chest pain, headaches - Related Data Home Medications Medication Instructions Recorded Confirmed Last Taken Ferrous Sulfate [Feosol 325 MG tab] 325 mg PO TID 05/31/18 05/31/18 1 Day Ago ~05/30/18 Previous Rx's Medication Instructions Recorded Last Taken Type Labetalol [Normodyne TAB] 200 mg PO BID #60 tablet 06/01/18 Unknown Rx Allergies Allergy/AdvReac Type Severity Reaction Status Date / Time No Known Allergies Allergy Unverified 10/01/17 16:58 ED Review of Systems ROS: Stated complaint: HPB Other details as noted in HPI Constitutional: denies: fever, malaise Eyes: vision change. denies: eye pain, eye discharge ENT: denies: throat pain Respiratory: denies: cough Cardiovascular: chest pain Gastrointestinal: denies: abdominal pain, nausea, vomiting Genitourinary: denies: dysuria Musculoskeletal: denies: back pain Skin: denies: lesions Neurological: headache. denies: weakness, numbness, paresthesias, confusion, abnormal gait, vertigo Psychiatric: denies: anxiety, depression ED Past Medical Hx - Past Medical History Hx Hypertension: No Hx Congestive Heart Failure: No Hx Diabetes: No Hx Deep Vein Thrombosis: No Hx Renal Disease: No Hx Sickle Cell Disease: No Hx Seizures: No Hx Asthma: No Hx COPD: No Hx HIV: No - Social History Smoking Status: Never Smoker - Medications Home Medications: Home Medications Medication Instructions Recorded Confirmed Last Taken Type Ferrous Sulfate [Feosol 325 MG tab] 325 mg PO TID 05/31/18 05/31/18 1 Day Ago History ~05/30/18 Labetalol [Normodyne TAB] 200 mg PO BID #60 tablet 06/01/18 Unknown Rx ED Physical Exam - General Limitations: No Limitations General appearance: alert, in no apparent distress - Head Head exam: Present: atraumatic, normocephalic - Eye Eye exam: Present: normal appearance, EOMI. Absent: nystagmus Pupils: Present: other (visual acuity intact to finger counting, color perception, reading at a close distance) - ENT ENT exam: Present: normal exam, normal orophraynx, mucous membranes moist, normal external ear exam - Neck Neck exam: Present: normal inspection, full ROM. Absent: tenderness, meningismus - Respiratory Respiratory exam: Present: normal lung sounds bilaterally, chest wall tenderness. Absent: respiratory distress, wheezes, rales, rhonchi, stridor - Cardiovascular Cardiovascular Exam: Present: normal rhythm, bradycardia, normal heart sounds. Absent: tachycardia, irregular rhythm, systolic murmur, diastolic murmur, rubs, gallop - GI/Abdominal GI/Abdominal exam: Present: soft. Absent: distended, tenderness, guarding, rebound, rigid, pulsatile mass - Extremities Exam Extremities exam: Present: normal inspection, full ROM, other (2+ pulses noted in the bilateral upper, lower extremities. Compartments soft. No long bony tenderness. The pelvis is stable.). Absent: pedal edema, joint swelling, calf tenderness - Back Exam Back exam: Present: normal inspection, full ROM. Absent: tenderness, CVA tenderness (R), paraspinal tenderness, vertebral tenderness - Neurological Exam Neurological exam: Present: alert (there is no pass pointing. There is a negative pronator drift. There is normal [id number].), oriented X3, CN II-XII intact, normal gait, other (Extraocular movements intact. Tongue midline. No facial droop. Facial sensation intact to light touch in the V1, V2, V3 distribution bilaterally. 5 and 5 strength in 4 extremities.. Sensation is intact to light touch in 4 extremities.). Absent: motor sensory deficit - Psychiatric Psychiatric exam: Present: normal affect, normal mood - Skin Skin exam: Present: warm, dry, intact, normal color. Absent: rash ED Course Vital Signs 06/05/18 06/05/18 06/05/18 12:18 12:30 12:40 Temperature 97.9 F Pulse Rate 58 L 57 L Respiratory 10 L 13 Rate Blood Pressure 152/108 151/99 Blood Pressure [Right] O2 Sat by Pulse 100 100 100 Oximetry 06/05/18 06/05/18 06/05/18 12:46 12:50 13:00 Temperature 97.9 F Pulse Rate 57 L 60 Respiratory 10 L 14 Rate Blood Pressure 151/99 Blood Pressure 151/99 [Right] O2 Sat by Pulse 100 100 100 Oximetry 06/05/18 06/05/18 06/05/18 13:16 13:17 13:30 Temperature Pulse Rate Respiratory 13 18 Rate Blood Pressure 151/99 153/112 149/108 Blood Pressure [Right] O2 Sat by Pulse 100 100 Oximetry 06/05/18 06/05/18 06/05/18 13:46 13:54 14:00 Temperature Pulse Rate Respiratory 12 15 16 Rate Blood Pressure 151/99 151/105 Blood Pressure [Right] O2 Sat by Pulse 100 100 Oximetry 06/05/18 06/05/18 06/05/18 14:16 14:30 14:46 Temperature Pulse Rate Respiratory Rate Blood Pressure 151/105 149/98 149/98 Blood Pressure [Right] O2 Sat by Pulse 100 100 100 Oximetry 06/05/18 06/05/18 06/05/18 14:50 16:01 16:16 Temperature 97.9 F Pulse Rate 72 78 Respiratory 16 17 Rate Blood Pressure 150/104 Blood Pressure 149/98 [Right] O2 Sat by Pulse 100 100 100 Oximetry 06/05/18 06/05/18 06/05/18 16:30 16:46 16:50 Temperature 98.3 F Pulse Rate 72 90 93 H Respiratory 19 12 12 Rate Blood Pressure 157/100 157/100 Blood Pressure 158/75 [Right] O2 Sat by Pulse 100 100 100 Oximetry 06/05/18 06/05/18 17:00 17:17 Temperature Pulse Rate 93 H 93 H Respiratory 12 Rate Blood Pressure 158/75 158/75 Blood Pressure [Right] O2 Sat by Pulse 100 Oximetry - Reevaluation(s) Reevaluation #1: 06/05/18 15:11 Differential diagnosis, including but not limited to: hypertension, preeclampsia, migraine headache, tension headache, cluster headache, venous sinus thrombosis, acute coronary syndrome, GERD, gastritis, costochondritis, pneumonia, pulmonary embolus Assessment and plan: 22-year-old female with multiple recurrent complaints Complaint #1; headache with nonspecific visual disturbance. GCS of 15, and nih score of 0. We will treat the patient's headache symptomatically, and obtain CT angiogram, CT venogram to exclude venous sinus thrombosis, and structural intracranial lesion doubt significant lesion based off of the history and physical. visual acuity intact to finger counting, color perception, reading at a close distance Complaint #2: Chest pain. Not tachycardic, not hypoxic, low risk by NISH score, low risk by well's criteria, however given recent , d-dimer sent, elevated, and we will obtain nuclear medicine study to risk stratify the patient for pulmonary embolus. Given that she is getting an angiogram, venogram of the head, she cannot get an angiogram of the chest. However, I have a very low suspicion for pulmonary embolus based on history and physical. We will obtain EKG 2, troponin 2. Complaint #3: Hypertension. Patient reports compliance with her labetalol. Recently had a workup for preeclampsia, which was not consistent with preeclampsia. She does not have elevated liver function tests, does not have lower extremity edema, this is not found to have proteinuria. Her history and physical was not consistent with preeclampsia. We will treat her pain, treat her with IV antihypertensive medication, and discussed with gynecology once her initial diagnostics have resulted. The patient reports that she is not breast-feeding currently Reevaluation #2: 06/05/18 17:27 Troponin negative 2. Repeat EKG unchanged 2. Nuclear medicine study is low probability for pulmonary embolus. Still slightly hypertensive. Consult requested from gynecology. Patient's account receivable associate, Dr. Coreas, indicates she will come down and evaluate the patient and make additional recommendations. Patient is not in any acute distress at this time. Reevaluation #3: 06/05/18 18:27 Dr Coreas recommends magnesium sulfate infusion and she accepts patient to her service patient agreeable to admission ED Medical Decision Making - Lab Data Result diagrams: 06/05/18 13:29 06/05/18 13:29 Vital Signs 06/05/18 13:17 Blood Pressure 153/112 Lab Results 06/05/18 06/05/18 06/05/18 Range/Units 13:15 13:29 13:29 WBC 5.6 (4.5-11.0) K/mm3 RBC 4.62 (3.65-5.03) M/mm3 Hgb 9.5 L (10.1-14.3) gm/dl Hct 30.5 (30.3-42.9) % MCV 66 L (79-97) fl MCH 21 L (28-32) pg MCHC 31 (30-34) % RDW 19.5 H (13.2-15.2) % Plt Count 303 (140-440) K/mm3 PT 13.9 (12.2-14.9) Sec. INR 1.01 (0.87-1.13) APTT 29.2 (24.2-36.6) Sec. D-Dimer 675.62 H (0-234) ng/mlDDU Sodium (137-145) mmol/L Potassium (3.6-5.0) mmol/L Chloride (98-107) mmol/L Carbon Dioxide (22-30) mmol/L Anion Gap mmol/L BUN (7-17) mg/dL Creatinine (0.7-1.2) mg/dL Estimated GFR ml/min BUN/Creatinine Ratio % Glucose (65-100) mg/dL Calcium (8.4-10.2) mg/dL Magnesium (1.7-2.3) mg/dL Total Bilirubin (0.1-1.2) mg/dL AST (5-40) units/L ALT (7-56) units/L Alkaline Phosphatase (35-129) units/L Total Creatine Kinase (30-135) units/L Troponin T (0.00-0.029) ng/mL Total Protein (6.3-8.2) g/dL Albumin (3.9-5) g/dL Albumin/Globulin Ratio % Urine Color Yellow (Yellow) Urine Turbidity Clear (Clear) Urine pH 6.0 (5.0-7.0) Ur Specific [place] 1.012 (1.003-1.030) Urine Protein <15 mg/dl (Negative) mg/dL Urine Glucose (UA) Neg (Negative) mg/dL Urine Ketones Neg (Negative) mg/dL Urine Blood Mod (Negative) Urine Nitrite Neg (Negative) Urine Bilirubin Neg (Negative) Urine Urobilinogen < 2.0 (<2.0) mg/dL Ur Leukocyte Esterase Mod (Negative) Urine WBC (Auto) 14.0 H (0.0-6.0) /HPF Urine RBC (Auto) 1.0 (0.0-6.0) /HPF U Epithel Cells (Auto) 4.0 (0-13.0) /HPF 06/05/18 06/05/18 Range/Units 13:29 13:29 WBC (4.5-11.0) K/mm3 RBC (3.65-5.03) M/mm3 Hgb (10.1-14.3) gm/dl Hct (30.3-42.9) % MCV (79-97) fl MCH (28-32) pg MCHC (30-34) % RDW (13.2-15.2) % Plt Count (140-440) K/mm3 PT (12.2-14.9) Sec. INR (0.87-1.13) APTT (24.2-36.6) Sec. D-Dimer (0-234) ng/mlDDU Sodium 140 (137-145) mmol/L Potassium 4.0 (3.6-5.0) mmol/L Chloride 106.9 (98-107) mmol/L Carbon Dioxide 22 (22-30) mmol/L Anion Gap 15 mmol/L BUN 8 (7-17) mg/dL Creatinine 0.5 L (0.7-1.2) mg/dL Estimated GFR > 60 ml/min BUN/Creatinine Ratio 16 % Glucose 83 (65-100) mg/dL Calcium 8.5 (8.4-10.2) mg/dL Magnesium 1.70 (1.7-2.3) mg/dL Total Bilirubin 0.20 (0.1-1.2) mg/dL AST 18 (5-40) units/L ALT 10 (7-56) units/L Alkaline Phosphatase 96 (35-129) units/L Total Creatine Kinase 89 (30-135) units/L Troponin T < 0.010 (0.00-0.029) ng/mL Total Protein 6.7 (6.3-8.2) g/dL Albumin 3.6 L (3.9-5) g/dL Albumin/Globulin Ratio 1.2 % Urine Color (Yellow) Urine Turbidity (Clear) Urine pH (5.0-7.0) Ur Specific [place] (1.003-1.030) Urine Protein (Negative) mg/dL Urine Glucose (UA) (Negative) mg/dL Urine Ketones (Negative) mg/dL Urine Blood (Negative) Urine Nitrite (Negative) Urine Bilirubin (Negative) Urine Urobilinogen (<2.0) mg/dL Ur Leukocyte Esterase (Negative) Urine WBC (Auto) (0.0-6.0) /HPF Urine RBC (Auto) (0.0-6.0) /HPF U Epithel Cells (Auto) (0-13.0) /HPF - EKG Data -: EKG Interpreted by Nv Rate: bradycardia - EKG Data 06/05/18 15:14 Bradycardic rhythm, 57 bpm, borderline left axis deviation, intervals within normal limits, nonspecific T-wave abnormality, suspect benign juvenile T-wave inversion, not consistent with ST elevation myocardial infarction. 06/05/18 15:15 Prior EKG, borderline left axis deviation appears to be new, otherwise, no acute disease. Critical Care Time: Yes Critical care time in (mins) excluding proc time.: 60 Critical care attestation.: If time is entered above; I have spent that time in minutes in the direct care of this critically ill patient, excluding procedure time. ED Disposition Clinical Impression: hypertension Disposition: DC-09 OP ADMIT IP TO THIS HOSP Is pt being admited?: Yes Does the pt Need Aspirin: No Condition: Good Instructions: Hypertension (ED) Additional Instructions: Do not breast feed for the next 7 days. Referrals: RUDOLPH JUAN MD [Primary Care Provider] - 3-5 Days
--- NOTE | 2018-06-05 13:54 | XRay Report ---
ROUTINE CHEST, TWO VIEWS: HISTORY: chest pain. The trachea, heart, mediastinal contour, lung donahue and bony thorax are unremarkable. IMPRESSION: Unremarkable chest x-ray.
[2018-06-05 13:56] LABS: Hematocrit 30.5 % (30.3-42.9); Hemoglobin 9.5 gm/dl (10.1-14.3); Mean Corpuscular HGB Conc 31 % (30-34); Platelet Count 303 K/mm3 (140-440); Red Blood Count 4.62 M/mm3 (3.65-5.03); Red Cell Distribution Width 19.5 % (13.2-15.2)
[2018-06-05 14:02] LABS: Alanine Aminotransferase 10 units/L (7-56); Albumin 3.6 g/dL (3.9-5); BUN/Creatinine Ratio 16; Blood Urea Nitrogen 8 mg/dL (7-17); Calcium 8.5 mg/dL (8.4-10.2); Hemolysis Index 0
[2018-06-05 14:02] LABS: Bilirubin,Urine NEG (Negative); Blood,Urine MOD (Negative); Color,Urine Yellow (Yellow); Protein,Urine <15 mg/dL mg/dL (Negative); Urobilinogen,Urine < 2.0 mg/dL (<2.0)
[2018-06-05 14:06] LABS: Mean Corpuscular Volume 66 fl (79-97)
[2018-06-05 14:07] LABS: INR 1.01 (0.87-1.13); Partial Thromboplastin Time 29.2 Sec. (24.2-36.6)
--- NOTE | 2018-06-05 15:43 | Nuclear Medicine Report ---
VENTILATION/PERFUSION LUNG SCAN: 06/05/18 CLINICAL: shortness of breath. Chest pain and positive d-dimer. TECHNIQUE: 15.0 mCi of xenon-133 was administered by aerosol and 5.0 mCi of technetium 99m MAA was administered intravenously. Comparison is made to a same day chest x-ray. FINDINGS: Inhalation of Xenon gas demonstrates a normal distribution of the activity throughout both lungs. The wash out phases show no significant retention of activity. After injection of Technetium 99m macroaggregated albumin gamma camera imaging of the lungs in multiple projections demonstrates normal pulmonary contours with a homogeneous distribution of activity. No suspicious focal areas of perfusion deficiency are identified. IMPRESSION: Low probability for pulmonary embolus.
--- NOTE | 2018-06-05 15:46 | Cat Scan Report ---
CTA/CTV HEAD: HISTORY: headache. TECHNIQUE: Helical CT images after IV contrast with 0.625mm reformations. Sagittal and coronal reformats. Rotational MIP images. 3D volume rendering technique. FINDINGS: The arterial structures of the anterior and posterior circulations are patent throughout. No evidence for stenosis, occlusion or aneurysm. The delayed venous images demonstrate patency of all dural venous sinuses. The superior sagittal sinus, cavernous sinus, straight sinus, transverse sinuses and sigmoid sinuses are patent and unremarkable. IMPRESSION: Unremarkable CTA head. Unremarkable CTV head.
[2018-06-05] MEDS ORDERED: NORMODYNE IV ONE ×3 (16:12→19:11)
[2018-06-05] MEDS ORDERED: MAGNESIUM SULFATE 40GM/1000ML 40 GM/1,000 ML BAG IV ONE (18:26)
[2018-06-05] MEDS ORDERED: MAGNESIUM SULFATE 4GM/100ML 4 GM/100 ML BAG IV ONE (19:17)
[2018-06-05] MEDS ORDERED: CALCIUM GLUCONATE IV ONE (19:17)
[2018-06-05] MEDS ORDERED: MAGNESIUM SULFATE 2GM/50ML 0 GM/0 ML BAG IV ONE (19:34)
--- NOTE | 2018-06-05 19:45 | History and Physical Report ---
History of Present Illness Date of admission: 06/05/18 18:34 Chief complaint: headache, chest pain, elevated blood pressures at home History of present illness: 22yo s/p POD#12 with uncomplicated vaginal delivery. She was readmitted on 05/30 for chest pain and hypertension. She now presents with headache which she states has been present since delivery, seeing "spots" in her eyes, chest pain and epigastric pain and blood pressures 150/100s. She states she takes her Labetolol 200mg at 11am and 11pm. She had a negative evaluation for pulmonary embolus, ME and stroke. Upon entering the room the patient is sitting up on her phone with her baby on her chest. Past History - Obstetrical History : 2 Medications and Allergies Allergies Allergy/AdvReac Type Severity Reaction Status Date / Time No Known Allergies Allergy Unverified 10/01/17 16:58 Home Medications Medication Instructions Recorded Confirmed Last Taken Type Ferrous Sulfate [Feosol 325 MG tab] 325 mg PO TID 05/31/18 05/31/18 1 Day Ago History ~05/30/18 Labetalol [Normodyne TAB] 200 mg PO BID #60 tablet 06/01/18 Unknown Rx Active Meds: Active Medications Magnesium Sulfate (Magnesium Sulfate 40gm/1000ml) 40 gm in 1,000 mls @ 25 mls/hr IV ONCE ONE Stop: 06/07/18 10:25 - Vital Signs Vital signs: Vital Signs Pulse Ox 100 06/05/18 12:18 Temp Pulse Resp BP Pulse Ox 98.3 F 96 H 12 144/100 100 06/05/18 16:50 06/05/18 19:11 06/05/18 17:00 06/05/18 19:11 06/05/18 17:00 Results Result Diagrams: 06/05/18 20:09 06/05/18 20:14 Abnormal lab results 06/05/18 06/05/18 06/05/18 Range/Units 13:15 13:29 13:29 Hgb 9.5 L (10.1-14.3) gm/dl MCV 66 L (79-97) fl MCH 21 L (28-32) pg RDW 19.5 H (13.2-15.2) % D-Dimer 675.62 H (0-234) ng/mlDDU Creatinine (0.7-1.2) mg/dL Albumin (3.9-5) g/dL Urine WBC (Auto) 14.0 H (0.0-6.0) /HPF 06/05/18 Range/Units 13:29 Hgb (10.1-14.3) gm/dl MCV (79-97) fl MCH (28-32) pg RDW (13.2-15.2) % D-Dimer (0-234) ng/mlDDU Creatinine 0.5 L (0.7-1.2) mg/dL Albumin 3.6 L (3.9-5) g/dL Urine WBC (Auto) (0.0-6.0) /HPF All other labs normal. Assessment and Plan - Patient Problems (1) Pre-eclampsia, severe Current Visit: Yes Status: Acute Plan to address problem: Admit for magnesium sulfate for seizure prophylaxis. Increase Labetolol to 300mg PO BID PIH labs. Observation.
[2018-06-05] MEDS ORDERED: MAGNESIUM SULFATE 40GM/1000ML 40 GM/1,000 ML BAG IV SCH (20:00)
[2018-06-05 20:52] LABS: Hematocrit 34.8 % (30.3-42.9); Hemoglobin 10.6 gm/dl (10.1-14.3); Mean Corpuscular HGB Conc 31 % (30-34); Platelet Count 362 K/mm3 (140-440); Red Blood Count 5.31 M/mm3 (3.65-5.03); Red Cell Distribution Width 19.6 % (13.2-15.2)
[2018-06-05 21:01] LABS: Mean Corpuscular Volume 65 fl (79-97)
[2018-06-05 21:06] LABS: Alanine Aminotransferase 12 units/L (7-56); Albumin 3.8 g/dL (3.9-5)
[2018-06-05 21:08] LABS: Bilirubin,Direct < 0.2 mg/dL (0-0.2)
[2018-06-05] MEDS: LACTATED RINGERS 1,000 ML IV SCH (21:42)
[2018-06-05] MEDS: NORMODYNE PO SCH (22:00)
--- NOTE | 2018-06-06 09:45 | Progress Note ---
Assessment and Plan - Patient Problems (1) Pre-eclampsia, Current Visit: Yes Status: Acute Plan to address problem: Continue magnesium for 24 hrs. Monitor Mg levels, urine output, DTRs. Continue BP monitoring. Labetolol PO. (2) (normal spontaneous vaginal delivery) Current Visit: No Status: Acute Subjective - Subjective Date of service: 06/06/18 Principal diagnosis: S/P Interval history: Patient is a 22 year old who presented to the ER yesterday complaining of having headaches, blurry vision, chest pain. Her BP was found to be in the 160's/100's. Head CT was negative. Chest CT was negative for PE. She was admitted for pre-eclampsia. She is on magnesium sulfate and labetolol for BP control. Her BP became stable in the 140's/80-90's. She continued to have headaches. She denies any visual disturbances or RUQ pain today. Objective - Vital Signs Latest vital signs: Vital Signs Temp Pulse Resp BP BP Pulse Ox 06/06/18 09:31 100 H 134/85 06/06/18 09:01 85 129/87 06/06/18 08:55 99 H 98 06/06/18 08:32 84 95 06/06/18 08:31 78 158/108 06/06/18 08:02 94 H 99 06/06/18 08:01 93 H 136/87 06/06/18 07:57 92 H 99 06/06/18 07:52 82 99 06/06/18 07:47 83 98 06/06/18 07:42 91 H 98 06/06/18 07:37 85 100 06/06/18 07:32 78 99 06/06/18 07:31 97.4 F L 83 18 131/84 99 06/06/18 07:30 77 131/84 06/06/18 07:27 89 99 06/06/18 07:22 101 H 70 L 06/06/18 07:12 86 129/87 06/06/18 06:42 71 126/68 06/06/18 06:33 70 98 06/06/18 06:28 71 97 06/06/18 06:23 71 98 06/06/18 06:18 69 99 06/06/18 06:13 77 99 06/06/18 06:12 74 117/66 03/20/19 05:57 84 92 0320/19 05:52 87 98 0320/19 05:43 87 99 0320/19 05:42 81 143/83 91 0320/19 05:38 89 100 0320/19 05:37 86 93 20/19 05:33 77 100 0320/19 05:28 74 100 0320/19 05:23 80 100 0320/19 05:18 76 100 20/19 05:13 77 100 0320/19 05:12 72 138/86 20/19 05:08 78 100 0320/19 05:03 76 99 20/ 04:58 80 100 20/19 04:53 74 99 06/06/ 04:48 76 100 06/06/19 04:43 77 100 06/06/19 04:42 88 130/76 06/06/19 04:38 78 100 06/06/ 04:33 76 100 06/06/19 04:28 77 99 06/06/ 04:23 75 100 06/06/19 04:18 82 100 06/06/19 04:13 81 100 0320/19 04:12 82 122/75 06/06/19 04:08 84 96 20/19 04:03 83 99 20/19 03:58 98 H 96 20/19 03:56 89 91 06/06/19 03:53 93 H 100 20/19 03:50 86 88 20/19 03:48 85 99 0320/19 03:43 80 100 06/06/19 03:42 76 128/77 0320/19 03:38 83 100 0320/19 03:33 81 100 0320/19 03:28 83 100 0320/19 03:23 82 100 0320/19 03:18 83 100 20/19 03:13 83 100 20/19 03:12 79 122/75 20/19 03:08 82 99 20/19 03:03 82 99 20/19 02:58 80 99 20/19 02:53 79 99 20/19 02:48 81 98 20/19 02:43 93 H 98 03/20/19 02:42 77 120/74 06/06/18 02:37 84 99 06/06/18 02:33 82 55 L 06/06/18 02:32 81 99 06/06/18 02:27 81 98 06/06/18 02:22 78 99 06/06/18 02:17 80 99 06/06/18 02:15 80 89 06/06/18 02:12 77 135/81 99 06/06/18 02:07 81 100 06/06/18 02:02 77 99 06/06/18 01:54 80 99 06/06/18 01:46 125 H 83 L 06/06/18 01:42 82 136/84 06/06/18 01:41 86 98 06/06/18 01:40 65 80 L 06/06/18 01:36 32 L 72 L 06/06/18 01:35 81 L 06/06/18 01:31 84 94 06/06/18 01:30 83 79 L 06/06/18 01:26 83 100 06/06/18 01:21 85 99 06/06/18 01:12 85 135/72 06/06/18 01:05 93 H 137/94 98 06/06/18 00:42 97 H 141/104 06/06/18 00:41 86 100 06/06/18 00:36 90 100 06/06/18 00:25 83 99 06/06/18 00:20 85 99 06/06/18 00:13 88 126/102 06/06/18 00:04 85 99 06/05/18 23:59 83 99 06/05/18 23:54 89 99 06/05/18 23:49 86 98 06/05/18 23:44 84 99 06/05/18 23:42 93 H 135/86 06/05/18 23:35 84 98 06/05/18 23:30 78 98 06/05/18 23:25 79 98 06/05/18 23:20 93 H 100 06/05/18 23:15 81 98 06/05/18 23:08 69 140/88 06/05/18 22:53 84 145/95 06/05/18 22:38 96 H 142/93 06/05/18 22:23 75 140/86 06/05/18 22:14 84 95 06/05/18 22:09 91 H 100 06/05/18 22:08 70 131/83 06/05/18 22:04 76 100 06/05/18 22:00 77 140/88 06/05/18 21:59 85 98 06/05/18 21:54 96.9 F L 81 18 138/83 138/83 99 06/05/18 20:01 98.3 F 96 H 17 158/75 99 06/05/18 19:30 17 137/78 99 06/05/18 19:15 13 144/100 100 06/05/18 19:11 96 H 144/100 06/05/18 19:00 23 144/100 100 06/05/18 18:46 13 147/101 100 06/05/18 18:30 21 146/103 100 06/05/18 18:16 17 156/82 100 06/05/18 18:00 12 147/101 100 06/05/18 17:46 12 156/82 100 06/05/18 17:30 91 H 15 156/82 100 06/05/18 17:17 93 H 158/75 06/05/18 17:16 82 11 L 158/75 100 06/05/18 17:00 93 H 12 158/75 100 06/05/18 16:50 98.3 F 93 H 12 158/75 100 06/05/18 16:46 90 12 157/100 100 06/05/18 16:30 72 19 157/100 100 06/05/18 16:16 78 17 150/104 100 06/05/18 16:01 100 06/05/18 14:50 97.9 F 72 16 149/98 100 06/05/18 14:46 149/98 100 06/05/18 14:30 149/98 100 06/05/18 14:16 151/105 100 06/05/18 14:00 16 151/105 100 06/05/18 13:54 15 06/05/18 13:46 12 151/99 100 06/05/18 13:30 18 149/108 100 06/05/18 13:17 153/112 06/05/18 13:16 13 151/99 100 06/05/18 13:00 151/99 100 06/05/18 12:50 97.9 F 60 14 151/99 100 06/05/18 12:46 57 L 10 L 100 06/05/18 12:40 97.9 F 57 L 13 151/99 100 06/05/18 12:30 58 L 10 L 152/108 100 06/05/18 12:18 100 Intake and Output 06/05/18 06/06/18 06/06/18 23:59 07:59 15:59 Output Total 1050 Balance -1050 Output: Urine 1050 Indwelling Catheter 1050 Other: Total, Output Amount 150 Weight 52.163 kg - Exam Cardiovascular: Present: Normal S1, Normal S2 Lungs: Present: Clear to auscultation Vulva: both: normal Deep Tendon Reflex Grade: Normal +2 - Labs Labs: Abnormal lab results 06/05/18 06/05/18 06/05/18 Range/Units 13:15 13:29 13:29 RBC (3.65-5.03) M/mm3 Hgb 9.5 L (10.1-14.3) gm/dl MCV 66 L (79-97) fl MCH 21 L (28-32) pg RDW 19.5 H (13.2-15.2) % D-Dimer 675.62 H (0-234) ng/mlDDU Creatinine (0.7-1.2) mg/dL Magnesium (1.7-2.3) mg/dL Lactate Dehydrogenase (91-180) units/L Albumin (3.9-5) g/dL Urine WBC (Auto) 14.0 H (0.0-6.0) /HPF 06/05/18 06/05/18 06/05/18 Range/Units 13:29 20:09 20:09 RBC 5.31 H (3.65-5.03) M/mm3 Hgb (10.1-14.3) gm/dl MCV 65 L (79-97) fl MCH 20 L (28-32) pg RDW 19.6 H (13.2-15.2) % D-Dimer (0-234) ng/mlDDU Creatinine 0.5 L (0.7-1.2) mg/dL Magnesium (1.7-2.3) mg/dL Lactate Dehydrogenase 200 H (91-180) units/L Albumin 3.6 L (3.9-5) g/dL Urine WBC (Auto) (0.0-6.0) /HPF 06/05/18 06/05/18 06/06/18 Range/Units 20:14 20:15 05:51 RBC (3.65-5.03) M/mm3 Hgb (10.1-14.3) gm/dl MCV (79-97) fl MCH (28-32) pg RDW (13.2-15.2) % D-Dimer (0-234) ng/mlDDU Creatinine 0.6 L (0.7-1.2) mg/dL Magnesium 4.10 H (1.7-2.3) mg/dL Lactate Dehydrogenase (91-180) units/L Albumin 3.8 L (3.9-5) g/dL Urine WBC (Auto) (0.0-6.0) /HPF
[2018-06-06] MEDS: NORMODYNE PO SCH ×2 (10:36→22:09)
[2018-06-06] MEDS: LACTATED RINGERS 1,000 ML IV SCH ×2 (10:42→20:34)
[2018-06-06 12:08] LABS: Bacteria,Urine 1+ /HPF (Negative); Bilirubin,Urine NEG (Negative); Blood,Urine NEG (Negative); Color,Urine Colorless (Yellow); Mucus,Urine FEW /HPF; Protein,Urine <15 mg/dL mg/dL (Negative); RBC,Urine < 1.0 /HPF (0.0-6.0); Urobilinogen,Urine < 2.0 mg/dL (<2.0); WBC,Urine < 1.0 /HPF (0.0-6.0)
[2018-06-06] MEDS: FIORICET PO PRN (13:37)
[2018-06-07] MEDS: NORMODYNE PO SCH ×2 (09:26→22:33)
--- NOTE | 2018-06-07 15:12 | Progress Note ---
Assessment and Plan - Patient Problems (1) Pre-eclampsia, Current Visit: Yes Status: Acute Plan to address problem: S/P magnesium for 24 hrs. Patient will continue labetolol PO BID. She was told to follow up in the office in 3 days for BP check. (2) (normal spontaneous vaginal delivery) Current Visit: No Status: Acute Subjective - Subjective Date of service: 06/07/18 Principal diagnosis: S/P , pre-ecalmpsia Interval history: Patient is a 22 year old S/P 10 days ago who was admitted from the ER with severe headaches, cheat pain and post- pre-eclampsia with BP in the 160's/100's. Head CT was negative. Chest CT was negative for PE. She was treated with magnesium sulfate and labetolol for BP control. Her BP became stable in the 140's/80-90's. Her headache has subsided. Objective - Vital Signs Latest vital signs: Vital Signs Temp Pulse Resp BP BP Pulse Ox 06/07/18 11:53 98.3 F 80 20 132/84 99 06/07/18 08:40 98.2 F 84 16 141/95 100 06/07/18 04:15 98.3 F 74 18 132/88 06/07/18 01:17 98.4 F 76 18 141/92 06/06/18 22:32 97.9 F 83 20 133/95 100 06/06/18 22:10 83 18 161/93 161/93 06/06/18 22:09 83 161/93 06/06/18 21:31 77 165/106 06/06/18 21:01 83 125/72 06/06/18 20:31 68 127/72 06/06/18 20:17 82 100 06/06/18 20:12 78 91 06/06/18 19:54 70 18 141/96 06/06/18 19:50 70 141/96 06/06/18 19:31 68 136/87 06/06/18 19:01 72 128/80 06/06/18 18:31 83 132/73 06/06/18 18:01 81 137/83 06/06/18 17:31 82 131/84 06/06/18 17:01 73 127/73 06/06/18 16:31 79 129/65 06/06/18 16:12 80 100 06/06/18 16:10 97.2 F L 86 18 137/95 06/06/18 16:01 86 137/95 06/06/18 15:55 91 H 99 06/06/18 15:50 83 100 06/06/18 15:45 85 99 06/06/18 15:40 83 100 06/06/18 15:35 79 99 06/06/18 15:31 85 131/91 06/06/18 15:30 88 99 06/06/18 15:25 88 99 06/06/18 15:20 89 99 06/06/18 15:15 82 100 06/06/18 15:10 99 H 99 Intake and Output 06/06/18 06/07/18 06/07/18 23:59 07:59 15:59 Intake Total 1490 240 240 Output Total 1650 600 Balance -160 -360 240 Intake: IV 1010 Lactated Ringers 1,000 ml 1000 @ 125 mls/hr IV DIRECT IBRAHIMA Rx#:[id number] Left Antecubital 10 Oral 480 240 Intake, Free Water 240 Output: Urine 1650 600 Indwelling Catheter 1650 Void 600 Other: Total, Intake Amount 480 240 Total, Output Amount 600 400 # Voids Void 1 - Exam Cardiovascular: Present: Normal S1, Normal S2 Lungs: Present: Clear to auscultation Vulva: both: normal Deep Tendon Reflex Grade: Normal +2
--- NOTE | 2018-06-07 15:14 | Discharge Summary ---
Providers - Providers Date of Admission: 06/06/18 12:15 Date of discharge: 06/07/18 Attending physician: ADAM PUGH 06/05/18 16:12 Consult to Physician [CONS] Urgent Comment: DR PUGH NOTIFIED 1700 Consulting Provider: ADAM PUGH Physician Instructions: Reason For Exam: POST HTN [facility] Reason for admission: other (Post pre-eclampsia.) Delivery: Hospital course: Patient is a 22 year old S/P 10 days ago who was admitted from the ER with severe headaches, cheat pain and post- pre-eclampsia with BP in the 160's/100's. Head CT was negative. Chest CT was negative for PE. She was treated with magnesium sulfate and labetolol for BP control. Her BP became stable in the 140's/80-90's. Her headache has subsided. She is being discharged home today. She will continue her labetolol. Condition at discharge: Stable Disposition: - TO HOME OR SELFCARE - Discharge Diagnoses (1) Pre-eclampsia, Status: Acute (2) (normal spontaneous vaginal delivery) Status: Acute (3) Anemia associated with acute blood loss Status: Acute Comment: Continue iron. (4) Chest pain Status: Acute Comment: Chest CT and Chest X-ray were negative. (5) UTI (urinary tract infection) Status: Acute Qualifiers: Urinary tract infection type: acute cystitis Plan - Provider Discharge Summary Additional instructions: [] Smoking cessation referral if applicable(refer to patient education folder for contact #) [] Refer to [facility] Booklet Call your doctor immediately for: * Fever > 100.5 * Heavy vaginal bleeding ( >1 pad per hour) * Severe persistent headache * Shortness of breath * Reddened, hot, painful area to leg or breast * Drainage or odor from incision. * Keep incision clean and dry at all times and follow doctor's instructions regarding bathing/showering - Follow up plan Follow up: RUDOLPH JUAN MD [Primary Care Provider] - 3-5 Days
[2018-06-07] MEDS: FIORICET PO PRN (15:24)
--- NOTE | 2018-06-07 20:36 | Consultation ---
History of Present Illness - Reason for Consult Consult date: 06/07/18 Requesting physician: CRISTHIAN FINE - History of Present Illness 22 YO Female admitted with Preeclampsia and Hypertension. Consult placed for headache. Pt states that she has experienced intermittent headache, dizziness over the past 2 weeks. Pt states that symptoms began after delivery. Pt seen and evaluated in her room. Pt denies fever, chills, CP, Palpitations, NVD, vertigo, incontinence, skin rash, trauma, or recent ill contacts. No reported nursing events. Past History Past Medical History: hypertension Past Surgical History: No surgical history, Other (reviewed) Social history: single. denies: smoking, alcohol abuse, prescription drug abuse Family history: no significant family history Medications and Allergies Allergies Allergy/AdvReac Type Severity Reaction Status Date / Time No Known Allergies Allergy Unverified 10/01/17 16:58 Home Medications Medication Instructions Recorded Confirmed Last Taken Type Ferrous Sulfate [Feosol 325 MG tab] 325 mg PO TID 05/31/18 05/31/18 1 Day Ago History ~05/30/18 Labetalol [Normodyne TAB] 200 mg PO BID #60 tablet 06/01/18 Unknown Rx Labetalol [Normodyne TAB] 200 mg PO BID #60 tablet 06/07/18 Unknown Rx Active Meds: Active Medications Acetaminophen/Butalbital/Caffeine (Fioricet) 2 tab PO Q4H PRN PRN Reason: Headache Last Admin: 06/07/18 15:24 Dose: 2 tab Documented by: Lactated Ringer's (Lactated Ringers) 1,000 mls @ 125 mls/hr IV DIRECT IBRAHIMA Last Admin: 06/06/18 20:34 Dose: 125 mls/hr Documented by: Magnesium Sulfate (Magnesium Sulfate 40gm/1000ml) 40 gm in 1,000 mls @ 25 mls/hr IV DIRECT IBRAHIMA Last Admin: 06/05/18 22:00 Dose: 1 gm/hr, 25 mls/hr Documented by: Labetalol HCl (Normodyne) 300 mg PO BID IBRAHIMA Last Admin: 06/07/18 09:26 Dose: 300 mg Documented by: Review of Systems Constitutional: other (headache,dizziness) Ears, nose, mouth and throat: no ear pain, no ear discharge, no tinnitis, no decreased hearing, no nose pain Breasts: no change in shape, no swelling, no mass Cardiovascular: no chest pain, no orthopnea, no palpitations, no rapid/irregular heart beat Respiratory: no cough, no cough with sputum, no excessive sputum, no hemoptysis, no dyspnea on exertion Gastrointestinal: no abdominal pain, no nausea, no vomiting, no diarrhea, no constipation Genitourinary Female: no pelvic pain, no flank pain, no menorrhagia, no dysuria, no urinary frequency, no urgency Rectal: no pain, no incontinence, no bleeding Musculoskeletal: no neck stiffness, no neck pain, no shooting arm pain, no arm n umbness/tingling, no low back pain, no shooting leg pain, no leg numbness/tingling Integumentary: no rash, no pruritis, no redness, no sores, no wounds, no jaundice Neurological: no paralysis, no weakness, no parathesias, no numbness, no tingling, no seizures, no syncope Psychiatric: no anxiety, no memory loss, no change in sleep habits, no insomnia Endocrine: no cold intolerance, no heat intolerance, no polyphagia, no polyuria, no nocturia, no excessive sweating Hematologic/Lymphatic: no easy bruising, no easy bleeding, no lymphadenopathy, no lymphedema Allergic/Immunologic: no urticaria, no allergic rhinitis, no wheezing Exam - Constitutional Vitals: Temp Pulse Resp BP Pulse Ox 98.2 F 82 18 149/77 99 06/07/18 15:40 06/07/18 15:40 06/07/18 15:40 06/07/18 15:40 06/07/18 11:53 General appearance: Present: no acute distress, well-nourished - EENT Eyes: Present: PERRL ENT: hearing intact, clear oral mucosa - Neck Neck: Present: supple, normal ROM - Respiratory Respiratory effort: normal Respiratory: bilateral: CTA - Cardiovascular Heart Sounds: Present: S1 & S2. Absent: rub, click - Extremities Extremities: pulses symmetrical, No edema Peripheral Pulses: within normal limits - Abdominal General gastrointestinal: Present: soft, non-tender, non-distended, normal bowel sounds Female genitourinary: Present: normal - Integumentary Integumentary: Present: clear, warm, dry - Musculoskeletal Musculoskeletal: gait normal, strength equal bilaterally - Psychiatric Psychiatric: appropriate mood/affect, intact judgment & insight - Neurologic Neurologic: CNII-XII intact, moves all extremities Results - Labs CBC & Chem 7: 06/05/18 20:09 06/05/18 20:14 Assessment and Plan - Patient Problems (1) Post lumbar puncture headache Current Visit: Yes Status: Suspected Plan to address problem: IVF resuscitation, repeat CT head, blood pressure control. repeat physical exam. Will consider anesthesia consult for blood patch in symptoms do not improve with supportive care.
[2018-06-07] MEDS ORDERED: NACL 0.45% 1,000 ML IV SCH (21:00)
[2018-06-08] MEDS: NORMODYNE PO SCH ×2 (11:08→21:49)
--- NOTE | 2018-06-08 15:14 | Progress Note ---
Assessment and Plan Assessment and plan: 22 YO Female admitted with Preeclampsia and Hypertension. Consult placed for headache. Pt states that she has experienced intermittent headache, dizziness over the past 2 weeks. Pt states that symptoms began after delivery. Pt seen and evaluated in her room. Pt denies fever, chills, CP, Palpitations, NVD, vertigo, incontinence, skin rash, trauma, or recent ill contacts. No reported nursing events. She reports that she had Epidural but her headache started after she got home and when she checked her BP it was elevated. She was readmitted and is being managed for the same. Headache Hypertensive urgency Post anesthesia Headache New syncope Post Plan Continue Supportive care Motrin Continue other management Doubt relation to anesthesia. Patient with no visual changes, paresis. BP looks better controlled. Ok to discharge from medicine stand point DVT/GI prophy History Interval history: Patient seen and examined, in no acute distress. Still complains of dizziness, headache but states its better. she is concerned that she leaves alone and has a new born baby. Hospitalist Physical - Constitutional Vitals: Temp Pulse Resp BP Pulse Ox 98.3 F 76 20 139/95 97 06/08/18 08:38 06/08/18 11:08 06/08/18 08:38 06/08/18 11:08 06/08/18 08:38 General appearance: Present: no acute distress, well-nourished - EENT Eyes: Present: PERRL, EOM intact ENT: hearing intact, clear oral mucosa, dentition normal - Neck Neck: Present: supple, normal ROM - Respiratory Respiratory effort: normal Respiratory: bilateral: CTA - Cardiovascular Rhythm: regular Heart Sounds: Present: S1 & S2 - Extremities Extremities: no ischemia, pulses intact, No edema, normal temperature Peripheral Pulses: within normal limits - Abdominal General gastrointestinal: soft, non-tender, non-distended, normal bowel sounds - Integumentary Integumentary: Present: clear, warm - Psychiatric Psychiatric: appropriate mood/affect, intact judgment & insight, cooperative - Neurologic Neurologic: CNII-XII intact, moves all extremities - Allied Health Allied health notes reviewed: nursing Results - Labs CBC & Chem 7: 06/09/18 09:51 06/09/18 09:51 Labs: Laboratory Last Values WBC 6.7 K/mm3 (4.5-11.0) 06/05/18 20:09 RBC 5.31 M/mm3 (3.65-5.03) H 06/05/18 20:09 Hgb 10.6 gm/dl (10.1-14.3) 06/05/18 20:09 Hct 34.8 % (30.3-42.9) 06/05/18 20:09 MCV 65 fl (79-97) L 06/05/18 20:09 MCH 20 pg (28-32) L 06/05/18 20:09 MCHC 31 % (30-34) 06/05/18 20:09 RDW 19.6 % (13.2-15.2) H 06/05/18 20:09 Plt Count 362 K/mm3 (140-440) 06/05/18 20:09 PT 13.9 Sec. (12.2-14.9) 06/05/18 13:29 INR 1.01 (0.87-1.13) 06/05/18 13:29 APTT 29.2 Sec. (24.2-36.6) 06/05/18 13:29 D-Dimer 675.62 ng/mlDDU (0-234) H 06/05/18 13:29 Sodium 140 mmol/L (137-145) 06/05/18 13:29 Potassium 4.0 mmol/L (3.6-5.0) 06/05/18 13:29 Chloride 106.9 mmol/L (98-107) 06/05/18 13:29 Carbon Dioxide 22 mmol/L (22-30) 06/05/18 13:29 Anion Gap 15 mmol/L 06/05/18 13:29 BUN 8 mg/dL (7-17) 06/05/18 13:29 Creatinine 0.6 mg/dL (0.7-1.2) L 06/05/18 20:14 Estimated GFR > 60 ml/min 06/05/18 20:14 BUN/Creatinine Ratio 16 % 06/05/18 13:29 Glucose 83 mg/dL (65-100) 06/05/18 13:29 Uric Acid 6.0 mg/dL (3.5-7.6) 06/05/18 20:15 Calcium 8.5 mg/dL (8.4-10.2) 06/05/18 13:29 Magnesium 4.10 mg/dL (1.7-2.3) H 06/06/18 05:51 Total Bilirubin 0.20 mg/dL (0.1-1.2) 06/05/18 20:15 Direct Bilirubin < 0.2 mg/dL (0-0.2) 06/05/18 20:15 Indirect Bilirubin 0.0 mg/dL 06/05/18 20:15 AST 18 units/L (5-40) 06/05/18 20:15 ALT 12 units/L (7-56) 06/05/18 20:15 Alkaline Phosphatase 111 units/L (35-129) 06/05/18 20:15 Lactate Dehydrogenase 200 units/L (91-180) H 06/05/18 20:09 Total Creatine Kinase 89 units/L (30-135) 06/05/18 13:29 Troponin T < 0.010 ng/mL (0.00-0.029) 06/05/18 14:45 Total Protein 7.1 g/dL (6.3-8.2) 06/05/18 20:15 Albumin 3.8 g/dL (3.9-5) L 06/05/18 20:15 Albumin/Globulin Ratio 1.2 % 06/05/18 20:15 Urine Color Colorless (Yellow) 06/06/18 10:58 Urine Turbidity Clear (Clear) 06/06/18 10:58 Urine pH 7.0 (5.0-7.0) 06/06/18 10:58 Ur Specific [place] 1.005 (1.003-1.030) 06/06/18 10:58 Urine Protein <15 mg/dl mg/dL (Negative) 06/06/18 10:58 Urine Glucose (UA) Neg mg/dL (Negative) 06/06/18 10:58 Urine Ketones Neg mg/dL (Negative) 06/06/18 10:58 Urine Blood Neg (Negative) 06/06/18 10:58 Urine Nitrite Neg (Negative) 06/06/18 10:58 Urine Bilirubin Neg (Negative) 06/06/18 10:58 Urine Urobilinogen < 2.0 mg/dL (<2.0) 06/06/18 10:58 Ur Leukocyte Esterase Neg (Negative) 06/06/18 10:58 Urine WBC (Auto) < 1.0 /HPF (0.0-6.0) 06/06/18 10:58 Urine RBC (Auto) < 1.0 /HPF (0.0-6.0) 06/06/18 10:58 U Epithel Cells (Auto) 4.0 /HPF (0-13.0) 06/05/18 13:15 Urine Bacteria (Auto) 1+ /HPF (Negative) 06/06/18 10:58 Urine Mucus Few /HPF 06/06/18 10:58 Active Medications - Current Medications Current Medications: Generic Name Dose Route Start Last Admin Trade Name Freq PRN Reason Stop Dose Admin Acetaminophen/Butalbital/Caffeine 2 tab 06/06/18 09:30 06/07/18 15:24 Fioricet PO 2 tab Q4H PRN Administration Headache Lactated Ringer's 1,000 mls @ 125 mls/hr 06/05/18 20:00 06/06/18 20:34 Lactated Ringers IV 125 mls/hr DIRECT IBRAHIMA Administration Magnesium Sulfate 40 gm in 1,000 mls @ 25 mls/hr 06/05/18 20:00 06/05/18 22:00 Magnesium Sulfate 40gm/1000ml IV 1 gm/hr DIRECT IBRAHIMA 25 mls/hr Administration 1 GM/HR Sodium Chloride 1,000 mls @ 75 mls/hr 06/07/18 21:00 06/07/18 22:32 Nacl 0.45% IV 06/09/18 10:19 75 mls/hr DIRECT IBRAHIMA Administration Labetalol HCl 300 mg 06/05/18 20:00 06/08/18 11:08 Normodyne PO 300 mg BID IBRAHIMA Administration
[2018-06-08] MEDS ORDERED: IBUPROFEN PO PRN ×2 (16:27→16:29)
[2018-06-08] MEDS: FIORICET PO PRN (21:50)
--- NOTE | 2018-06-09 08:55 | Event Note ---
Date: 06/09/18 Elevated BPs. Repeat preeclamptic labs ordered. Patient is taking Labetalol 300 mg po BID. Consulted with Dr. John re: this patient. Norvasc 10 mg po daily ordered per Dr. John's recommendation. Spoke with patient's nurse just now re: these new orders.
[2018-06-09] MEDS ORDERED: NORVASC PO SCH (10:00)
[2018-06-09] MEDS: NORMODYNE PO SCH (10:10)
[2018-06-09 10:15] LABS: Basophils % (Auto) 0.9 % (0.0-1.8); Eosinophils # (Auto) 0.1 K/mm3 (0.0-0.4); Eosinophils % (Auto) 3.7 % (0.0-4.3); Hematocrit 33.7 % (30.3-42.9); Hemoglobin 10.4 gm/dl (10.1-14.3); Lymphocytes # (Auto) 1.5 K/mm3 (1.2-5.4); Lymphocytes % (Auto) 36.3 % (13.4-35.0); Mean Corpuscular HGB Conc 31 % (30-34); Mean Corpuscular Volume 67 fl (79-97); Monocytes # (Auto) 0.5 K/mm3 (0.0-0.8); Monocytes % (Auto) 11.4 % (0.0-7.3); Platelet Count 323 K/mm3 (140-440); Red Blood Count 5.06 M/mm3 (3.65-5.03); Red Cell Distribution Width 19.9 % (13.2-15.2)
[2018-06-09 10:26] LABS: Alanine Aminotransferase 18 units/L (7-56); BUN/Creatinine Ratio 14; Blood Urea Nitrogen 10 mg/dL (7-17); Calcium 9.1 mg/dL (8.4-10.2); Hemolysis Index 5; Uric Acid 5.3 mg/dL (3.5-7.6)
[2018-06-09] MEDS: FIORICET PO PRN (10:35)
--- NOTE | 2018-06-09 13:26 | Progress Note ---
Assessment and Plan Assessment and plan: 22 YO Female admitted with Preeclampsia and Hypertension. Consult placed for headache. Pt states that she has experienced intermittent headache, dizziness over the past 2 weeks. Pt states that symptoms began after delivery. Pt seen and evaluated in her room. Pt denies fever, chills, CP, Palpitations, NVD, vertigo, incontinence, skin rash, trauma, or recent ill contacts. No reported nursing events. She reports that she had Epidural but her headache started after she got home and when she checked her BP it was elevated. She was readmitted and is being managed for the same. Headache Hypertensive urgency Post anesthesia Headache New syncope Post Plan Continue Supportive care Motrin Continue other management currently on Labetalol 300mg BID and norvasc 10mg daily (prescriptions in chart.) Doubt relation to anesthesia. Patient with no visual changes, paresis. BP looks better controlled. Ok to discharge from medicine stand point DVT/GI prophy History Interval history: Patient seen and examined, in no acute distress. Reports remarkable improvement. No further headache or dizziness. wants to go home Hospitalist Physical - Physical exam Narrative exam: General appearance: Present: no acute distress, well-nourished - EENT Eyes: Present: PERRL, EOM intact, nose ring ENT: hearing intact, clear oral mucosa, dentition normal - Neck Neck: Present: supple, normal ROM - Respiratory Respiratory effort: normal Respiratory: bilateral: CTA - Cardiovascular Rhythm: regular Heart Sounds: Present: S1 & S2 - Extremities Extremities: no ischemia, pulses intact, No edema, normal temperature Peripheral Pulses: within normal limits - Abdominal General gastrointestinal: soft, non-tender, non-distended, normal bowel sounds - Integumentary Integumentary: Present: clear, warm - Psychiatric Psychiatric: appropriate mood/affect, intact judgment & insight, cooperative - Neurologic Neurologic: CNII-XII intact, moves all extremities - Constitutional Vitals: Temp Pulse Resp BP Pulse Ox 98.9 F 78 16 136/86 99 06/09/18 07:36 06/09/18 10:10 06/09/18 07:36 06/09/18 10:10 06/09/18 07:36 General appearance: Present: no acute distress, well-nourished Results - Labs CBC & Chem 7: 06/09/18 09:51 06/09/18 09:51 Labs: Laboratory Last Values WBC 4.0 K/mm3 (4.5-11.0) L 06/09/18 09:51 RBC 5.06 M/mm3 (3.65-5.03) H 06/09/18 09:51 Hgb 10.4 gm/dl (10.1-14.3) 06/09/18 09:51 Hct 33.7 % (30.3-42.9) 06/09/18 09:51 MCV 67 fl (79-97) L 06/09/18 09:51 MCH 21 pg (28-32) L 06/09/18 09:51 MCHC 31 % (30-34) 06/09/18 09:51 RDW 19.9 % (13.2-15.2) H 06/09/18 09:51 Plt Count 323 K/mm3 (140-440) 06/09/18 09:51 Lymph % (Auto) 36.3 % (13.4-35.0) H 06/09/18 09:51 [place] % (Auto) 11.4 % (0.0-7.3) H 06/09/18 09:51 Eos % (Auto) 3.7 % (0.0-4.3) 06/09/18 09:51 Baso % (Auto) 0.9 % (0.0-1.8) 06/09/18 09:51 Lymph # 1.5 K/mm3 (1.2-5.4) 06/09/18 09:51 [place] # 0.5 K/mm3 (0.0-0.8) 06/09/18 09:51 Eos # 0.1 K/mm3 (0.0-0.4) 06/09/18 09:51 Baso # 0.0 K/mm3 (0.0-0.1) 06/09/18 09:51 Seg Neutrophils % 47.7 % (40.0-70.0) 06/09/18 09:51 Seg Neutrophils # 1.9 K/mm3 (1.8-7.7) 06/09/18 09:51 PT 13.9 Sec. (12.2-14.9) 06/05/18 13:29 INR 1.01 (0.87-1.13) 06/05/18 13:29 APTT 29.2 Sec. (24.2-36.6) 06/05/18 13:29 D-Dimer 675.62 ng/mlDDU (0-234) H 06/05/18 13:29 Sodium 138 mmol/L (137-145) 06/09/18 09:51 Potassium 4.4 mmol/L (3.6-5.0) 06/09/18 09:51 Chloride 101.6 mmol/L (98-107) 06/09/18 09:51 Carbon Dioxide 23 mmol/L (22-30) 06/09/18 09:51 Anion Gap 18 mmol/L 06/09/18 09:51 BUN 10 mg/dL (7-17) 06/09/18 09:51 Creatinine 0.7 mg/dL (0.7-1.2) 06/09/18 09:51 Estimated GFR > 60 ml/min 06/09/18 09:51 BUN/Creatinine Ratio 14 % 06/09/18 09:51 Glucose 64 mg/dL (65-100) L 06/09/18 09:51 Uric Acid 5.3 mg/dL (3.5-7.6) 06/09/18 09:51 Calcium 9.1 mg/dL (8.4-10.2) 06/09/18 09:51 Magnesium 4.10 mg/dL (1.7-2.3) H 06/06/18 05:51 Total Bilirubin < 0.20 mg/dL (0.1-1.2) 06/09/18 09:51 Direct Bilirubin < 0.2 mg/dL (0-0.2) 06/05/18 20:15 Indirect Bilirubin 0.0 mg/dL 06/05/18 20:15 AST 19 units/L (5-40) 06/09/18 09:51 ALT 18 units/L (7-56) 06/09/18 09:51 Alkaline Phosphatase 112 units/L (35-129) 06/09/18 09:51 Lactate Dehydrogenase 165 units/L (91-180) 06/09/18 09:51 Total Creatine Kinase 89 units/L (30-135) 06/05/18 13:29 Troponin T < 0.010 ng/mL (0.00-0.029) 06/05/18 14:45 Total Protein 7.2 g/dL (6.3-8.2) 06/09/18 09:51 Albumin 4.0 g/dL (3.9-5) 06/09/18 09:51 Albumin/Globulin Ratio 1.3 % 06/09/18 09:51 Urine Color Colorless (Yellow) 06/06/18 10:58 Urine Turbidity Clear (Clear) 06/06/18 10:58 Urine pH 7.0 (5.0-7.0) 06/06/18 10:58 Ur Specific [place] 1.005 (1.003-1.030) 06/06/18 10:58 Urine Protein <15 mg/dl mg/dL (Negative) 06/06/18 10:58 Urine Glucose (UA) Neg mg/dL (Negative) 06/06/18 10:58 Urine Ketones Neg mg/dL (Negative) 06/06/18 10:58 Urine Blood Neg (Negative) 06/06/18 10:58 Urine Nitrite Neg (Negative) 06/06/18 10:58 Urine Bilirubin Neg (Negative) 06/06/18 10:58 Urine Urobilinogen < 2.0 mg/dL (<2.0) 06/06/18 10:58 Ur Leukocyte Esterase Neg (Negative) 06/06/18 10:58 Urine WBC (Auto) < 1.0 /HPF (0.0-6.0) 06/06/18 10:58 Urine RBC (Auto) < 1.0 /HPF (0.0-6.0) 06/06/18 10:58 U Epithel Cells (Auto) 4.0 /HPF (0-13.0) 06/05/18 13:15 Urine Bacteria (Auto) 1+ /HPF (Negative) 06/06/18 10:58 Urine Mucus Few /HPF 06/06/18 10:58 Active Medications - Current Medications Current Medications: Generic Name Dose Route Start Last Admin Trade Name Freq PRN Reason Stop Dose Admin Acetaminophen/Butalbital/Caffeine 2 tab 06/06/18 09:30 06/09/18 10:35 Fioricet PO 2 tab Q4H PRN Administration Headache Amlodipine Besylate 10 mg 06/09/18 10:00 06/09/18 10:36 Norvasc PO 10 mg QDAY IBRAHIMA Administration Lactated Ringer's 1,000 mls @ 125 mls/hr 06/05/18 20:00 06/06/18 20:34 Lactated Ringers IV 125 mls/hr DIRECT IBRAHIMA Administration Magnesium Sulfate 40 gm in 1,000 mls @ 25 mls/hr 06/05/18 20:00 06/05/18 22:00 Magnesium Sulfate 40gm/1000ml IV 1 gm/hr DIRECT IBRAHIMA 25 mls/hr Administration 1 GM/HR Ibuprofen 800 mg 06/08/18 16:29 Motrin PO Q6HR PRN Pain, Mild (1-3) Labetalol HCl 300 mg 06/05/18 20:00 06/09/18 10:10 Normodyne PO 300 mg BID IBRAHIMA Administration
[2018-06-09 14:44] VITALS: BP 122/77
--- NOTE | 2018-06-09 15:37 | Progress Note ---
Assessment and Plan Consulted with Dr. John regarding patient. Dr. John states it is OK to discharge patient home. Hospitalist has already left Rx for patient on chart for Labetalol and Norvasc. Discussed with patient use of medication and warning signs. Advised patient to follow up at [facility] on Monday06/12/18 for BP check. Patient voiced understanding of discharge instructions. Subjective - Subjective Date of service: 06/09/18 Principal diagnosis: S/P , pre-ecalmpsia Interval history: 22 year old female who had 12 days ago. Patient has been receiving Labetalol and Norvasc and blood pressures are well controlled. Patient has been seen by hospitalist and Rx have been written for patient to go home on po Labetalol and Norvasc. Patient denies headache, chest pain, cough, shortness of breath, visual disturbance. Patient desires discharge today. Patient reports: appetite normal, voiding normally, pain well controlled, ambulating normally, no dizzy ambulation, no nauseated : doing well Objective - Vital Signs Latest vital signs: Vital Signs Temp Pulse Resp BP BP Pulse Ox 06/09/18 14:38 98.4 F 97 H 18 122/77 100 06/09/18 12:23 98.8 F 84 18 131/90 100 06/09/18 10:12 136/86 06/09/18 10:10 78 136/86 06/09/18 07:36 98.9 F 72 16 131/83 99 06/09/18 04:26 69 147/97 100 06/09/18 04:05 98.6 F 67 20 147/97 06/09/18 00:00 98.3 F 66 18 144/93 06/08/18 21:50 78 150/105 06/08/18 16:55 126/98 06/08/18 16:52 86 136/93 99 06/08/18 16:49 98.5 F 81 20 119/70 99 Intake and Output 06/08/18 06/09/18 06/09/18 23:59 07:59 15:59 Intake Total 240 720 Balance 240 720 Intake: Oral 240 480 Intake, Free Water 240 Other: Total, Intake Amount 240 240 # Voids Void 1 1 - Exam Narrative Exam: Preeclamptic labs negative. - Labs Labs: Abnormal lab results 06/09/18 06/09/18 Range/Units 09:51 09:51 WBC 4.0 L (4.5-11.0) K/mm3 RBC 5.06 H (3.65-5.03) M/mm3 MCV 67 L (79-97) fl MCH 21 L (28-32) pg RDW 19.9 H (13.2-15.2) % Lymph % (Auto) 36.3 H (13.4-35.0) % [place] % (Auto) 11.4 H (0.0-7.3) % Glucose 64 L (65-100) mg/dL
--- NOTE | 2018-06-09 15:53 | Discharge Summary ---
Providers - Providers Date of Admission: 06/06/18 12:15 Date of discharge: 06/09/18 Attending physician: ADAM PUGH 06/05/18 16:12 Consult to Physician [CONS] Urgent Comment: DR PUGH NOTIFIED 1700 Consulting Provider: ADAM PUGH Physician Instructions: Reason For Exam: POST HTN 06/09/18 13:28 Consult to Case Management [CONS] Urgent Services Needed at Discharge: Heating And Ventilating Drafter Notified:: Anjeljatinder Phone number called:: 0 Was contact made?: Yes Primary care physician: RUDOLPH NEELY MD Hospitalization Reason for admission: other ( preeclampsia) Pertinent studies: Labs and CT scan. Hospital course: Stable hospital course. Condition at discharge: Good Disposition: DC-01 TO HOME OR SELFCARE - Discharge Diagnoses (1) Hypertension Status: Acute Plan - Discharge Medications Prescriptions: Labetalol [Normodyne TAB] 300 mg PO BID #90 tablet amLODIPine [Norvasc] 10 mg PO QDAY #30 tablet - Provider Discharge Summary Activity: no sex for 6 weeks, no heavy lifting 4 weeks, no strenuous exercise Diet: routine Instructions: routine Additional instructions: Call your doctor immediately for: * Fever > 100.5 * Heavy vaginal bleeding ( >1 pad per hour) * Severe persistent headache * Shortness of breath * Reddened, hot, painful area to leg or breast - Follow up plan Follow up: RUDLOPH JUAN MD [Primary Care Provider] - 3 Days
== END 2018-06-09 17:42 | disposition home or self-care (01) | DRG 776 ==
LOC: ED 11:53 → LD 18:34 → OBSVTOIN 06-06 12:15 → OB 06-06 22:58
PROVIDERS: ADMIT Obstetrics & Gynecology; ATTEND Obstetrics & Gynecology
DX: O14.15 Severe pre-eclampsia, complicating the puerperium (principal); O10.93 Unspecified pre-existing hypertension complicating the puerperium; I16.0 Hypertensive urgency; O90.89 Other complications of the puerperium, not elsewhere classified; R55 Syncope and collapse; R51 Headache; G97.1 Other reaction to spinal and lumbar puncture; O90.81 Anemia of the puerperium; D62 Acute posthemorrhagic anemia; O86.22 Infection of bladder following delivery; Z79.899 Other long term (current) drug therapy
CPT/HCPCS: 36415; 70496; 71046; 78582; 80053; 80076; 81001; 82550; 82565; 83615; 83735; 84484; 84550; 85025; 85027; 85379; 85610; 85730; 93005; 93010; 96374; 96375; 99291; G0378; A9540; A9558; J0360; J3010; J3475; J7040; J7120; Q9967

== ENCOUNTER 2018-06-25 15:56 | Emergency (ER) | payer OTHER ==
[2018-06-25] MEDS ORDERED: ALUM-MAG HYDROX-SIMETH 200-200-20MG/5ML PO ONE (16:30)
[2018-06-25] MEDS ORDERED: TYLENOL PO ONE (16:30)
[2018-06-25] MEDS ORDERED: NORMODYNE PO ONE ×2 (16:30→17:00)
[2018-06-25] MEDS ORDERED: PEPCID PO ONE (16:30)
--- NOTE | 2018-06-25 16:31 | Emergency Department Report ---
ED General Adult HPI - General Chief complaint: Chest Pain Stated complaint: CHEST PAIN Time Seen by Provider: 06/25/18 16:17 Source: patient, EMS (ems notes not available at time of chart dictation), RN notes reviewed, old records reviewed Mode of arrival: Stretcher Limitations: No Limitations - History of Present Illness Initial comments: CERTIFIED ORTHOTIST PRACTICE MANAGER: Joss Bermeo This is a 22-year-old female. I have evaluated this patient. The patient presents to the emergency room today with complaint of nontraumatic chest pain. The chest pain is central. The patient reports the chest pain has been present constantly for 1 week. She reports the pain does not radiate to the back, arms and neck. She denies vomiting, she denies diaphoresis. The robbie fernandez recently delivered at this hospital within the past few weeks. This patient was seen by myself a few weeks ago for chest pain and headache, and hypertension. She was admitted to the gynecology service for questionable preeclampsia. She had a negative CTA of the head, which demonstrated no venous sinus thrombosis, or any significant arterial disease, and a low probability nuclear medicine study. She reports that during a recent hospitalization, she was discharged on labetalol, Norvasc, which her drainman has subsequently discontinued (only the amlodipine, not labetalol). Patient is supposed to be on 300 labetalol twice daily, by her verbal report. She reports not taking this medication for 3-4 days. Today, she denies headache, neck pain, abdominal pain, lower extremity pain, lower extremity swelling. She reports that she is going to multiple outpatient facilities, including the [facility], and [facility], to check her blood pressure. -: Gradual, days(s) Location: chest Radiation: non-radiation Severity scale (0 -10): 8 Quality: aching Consistency: constant Improves with: rest Worsens with: movement - Related Data Home Medications Medication Instructions Recorded Confirmed Last Taken Ferrous Sulfate [Feosol 325 MG tab] 325 mg PO TID 05/31/18 05/31/18 1 Day Ago ~05/30/18 Previous Rx's Medication Instructions Recorded Last Taken Type amLODIPine [Norvasc] 10 mg PO QDAY #30 tablet 06/09/18 Unknown Rx Acetaminophen [Tylenol Arthritis] 650 mg PO Q6HR PRN #30 tablet.er 06/25/18 Unknown Rx Famotidine [Pepcid] 20 mg PO BID #30 tablet 06/25/18 Unknown Rx Labetalol [Normodyne TAB] 300 mg PO BID #90 tablet 06/25/18 Unknown Rx Allergies Allergy/AdvReac Type Severity Reaction Status Date / Time No Known Allergies Allergy Unverified 10/01/17 16:58 ED Review of Systems ROS: Stated complaint: CHEST PAIN Other details as noted in HPI Constitutional: denies: fever, malaise Eyes: denies: vision change ENT: denies: epistaxis Respiratory: denies: cough Cardiovascular: chest pain Gastrointestinal: denies: abdominal pain, nausea, vomiting Genitourinary: denies: dysuria Musculoskeletal: denies: back pain Skin: denies: lesions Neurological: denies: weakness Psychiatric: anxiety ED Past Medical Hx - Past Medical History Previous Medical History?: No Hx Hypertension: No Hx Congestive Heart Failure: No Hx Diabetes: No Hx Deep Vein Thrombosis: No Hx Renal Disease: No Hx Sickle Cell Disease: No Hx Seizures: No Hx Asthma: No Hx COPD: No Hx HIV: No - Surgical History Past Surgical History?: No - Social History Smoking Status: Never Smoker Substance Use Type: None - Medications Home Medications: Home Medications Medication Instructions Recorded Confirmed Last Taken Type Ferrous Sulfate [Feosol 325 MG tab] 325 mg PO TID 05/31/18 05/31/18 1 Day Ago History ~05/30/18 amLODIPine [Norvasc] 10 mg PO QDAY #30 tablet 06/09/18 Unknown Rx Acetaminophen [Tylenol Arthritis] 650 mg PO Q6HR PRN #30 tablet.er 06/25/18 Unknown Rx Famotidine [Pepcid] 20 mg PO BID #30 tablet 06/25/18 Unknown Rx Labetalol [Normodyne TAB] 300 mg PO BID #90 tablet 06/25/18 Unknown Rx ED Physical Exam - General Limitations: No Limitations General appearance: alert, in no apparent distress - Head Head exam: Present: atraumatic, normocephalic - Eye Eye exam: Present: normal appearance, EOMI. Absent: nystagmus - ENT ENT exam: Present: normal exam, normal orophraynx, mucous membranes moist, normal external ear exam - Neck Neck exam: Present: normal inspection, full ROM. Absent: tenderness, meningismus - Respiratory Respiratory exam: Present: normal lung sounds bilaterally, chest wall tenderness. Absent: respiratory distress - Cardiovascular Cardiovascular Exam: Present: regular rate, normal rhythm, normal heart sounds. Absent: bradycardia, tachycardia, irregular rhythm, systolic murmur, diastolic murmur, rubs, gallop - GI/Abdominal GI/Abdominal exam: Present: soft. Absent: distended, tenderness, guarding, rebound, rigid, pulsatile mass - Extremities Exam Extremities exam: Present: normal inspection, full ROM, other (2+ pulses noted in the bilateral upper, lower extremities. Compartments soft. No long bony tenderness. The pelvis is stable.). Absent: pedal edema, joint swelling, calf tenderness - Back Exam Back exam: Present: normal inspection, full ROM. Absent: tenderness, CVA tenderness (R), paraspinal tenderness, vertebral tenderness - Neurological Exam Neurological exam: Present: alert, oriented X3, CN II-XII intact, normal gait, other (Extraocular movements intact. Tongue midline. No facial droop. Facial sensation intact to light touch in the V1, V2, V3 distribution bilaterally. 5 and 5 strength in 4 extremities.. Sensation is intact to light touch in 4 extremities.). Absent: motor sensory deficit - Psychiatric Psychiatric exam: Present: normal affect, normal mood - Skin Skin exam: Present: warm, dry, intact, normal color. Absent: rash ED Course Vital Signs 06/25/18 06/25/18 06/25/18 16:01 16:51 19:00 Temperature 97.8 F 98.6 F Pulse Rate 79 56 L 71 Respiratory 16 14 16 Rate Blood Pressure 139/69 123/93 Blood Pressure 123/93 118/77 [Right] O2 Sat by Pulse 100 100 100 Oximetry - Reevaluation(s) Reevaluation #1: 06/25/18 20:04 Differential diagnosis, including but not limited to: GERD, gastritis, hiatal hernia, pneumonia, acute coronary syndrome, pulmonary embolus, hypertension Assessment and plan: 22-year-old female with a primary complaint of recurrent chest pain. The patient had a recent cardiac risk stratification in this department, within the past month, with multiple negative troponins, and a low probability pulmonary embolus nuclear medicine study. Troponin negative 2, EKG unchanged 2, x-ray of the chest unremarkable, patient low risk by the NISH score, low risk by heart score, however, given recent , and persistent chest pain, d-dimer sent to risk stratify the patient, comes back elevated, and CT scan of the chest will be ordered. We will treat the patient's pain. Blood pressures improved with hydralazine. Has chronic proteinuria, noted in the beginning of May, but normal liver function tests, blood pressure has come down appropriately, no lower extremity edema, and currently has no headache, or neurologic symptoms. Patient is medically suitable to follow-up with a snow plow operator, to complete her cardiac risk stratification, I will contact her private drainman, and arrange close outpatient follow-up for hypertension. Reevaluation #2: 06/25/18 20:26 Discussed with covering drainman, Dr. Fine, who agrees that patient should continue labetalol, 300 mg twice daily, and that the patient should call the office tomorrow, and arrange for close follow-up appointment for , for repeat blood pressure check. Reevaluation #3: 06/25/18 22:37 CT scan of the chest is negative for acute disease. Patient no distress. Vital signs acceptable and within normal limits at this time. Patient will be discharged, with instructions to follow up with outpatient cardiology, and gynecology. The patient has verbalized understanding to discharge instructions. ED Medical Decision Making - Lab Data Result diagrams: 06/25/18 16:14 06/25/18 16:14 Vital Signs 06/25/18 06/25/18 06/25/18 16:01 16:51 19:00 Temperature 97.8 F 98.6 F Pulse Rate 79 56 L 71 Respiratory 16 14 16 Rate Blood Pressure 139/69 123/93 Blood Pressure 123/93 118/77 [Right] O2 Sat by Pulse 100 100 100 Oximetry Lab Results 06/25/18 06/25/18 06/25/18 Range/Units 16:14 16:14 17:03 WBC 4.2 L (4.5-11.0) K/mm3 RBC 4.71 (3.65-5.03) M/mm3 Hgb 9.6 L (10.1-14.3) gm/dl Hct 31.5 (30.3-42.9) % MCV 67 L (79-97) fl MCH 20 L (28-32) pg MCHC 31 (30-34) % RDW 20.1 H (13.2-15.2) % Plt Count 229 (140-440) K/mm3 Lymph % (Auto) 43.9 H (13.4-35.0) % [place] % (Auto) 11.5 H (0.0-7.3) % Eos % (Auto) 7.1 H (0.0-4.3) % Baso % (Auto) 1.0 (0.0-1.8) % Lymph # 1.8 (1.2-5.4) K/mm3 [place] # 0.5 (0.0-0.8) K/mm3 Eos # 0.3 (0.0-0.4) K/mm3 Baso # 0.0 (0.0-0.1) K/mm3 Seg Neutrophils % 36.5 L (40.0-70.0) % Seg Neutrophils # 1.5 L (1.8-7.7) K/mm3 PT (12.2-14.9) Sec. INR (0.87-1.13) APTT (24.2-36.6) Sec. D-Dimer (0-234) ng/mlDDU Sodium 142 (137-145) mmol/L Potassium 4.0 (3.6-5.0) mmol/L Chloride 105.8 (98-107) mmol/L Carbon Dioxide 26 (22-30) mmol/L Anion Gap 14 mmol/L BUN 10 (7-17) mg/dL Creatinine 0.6 L (0.7-1.2) mg/dL Estimated GFR > 60 ml/min BUN/Creatinine Ratio 17 % Glucose 82 (65-100) mg/dL Calcium 8.5 (8.4-10.2) mg/dL Total Bilirubin < 0.20 (0.1-1.2) mg/dL AST 16 (5-40) units/L ALT 8 (7-56) units/L Alkaline Phosphatase 91 (35-129) units/L Troponin T < 0.010 (0.00-0.029) ng/mL Total Protein 6.8 (6.3-8.2) g/dL Albumin 4.1 (3.9-5) g/dL Albumin/Globulin Ratio 1.5 % Urine Color Yellow (Yellow) Urine Turbidity Clear (Clear) Urine pH 6.0 (5.0-7.0) Ur Specific [place] 1.031 H (1.003-1.030) Urine Protein 100 mg/dl (Negative) mg/dL Urine Glucose (UA) Neg (Negative) mg/dL Urine Ketones Neg (Negative) mg/dL Urine Blood Mod (Negative) Urine Nitrite Neg (Negative) Urine Bilirubin Neg (Negative) Urine Urobilinogen < 2.0 (<2.0) mg/dL Ur Leukocyte Esterase Neg (Negative) Urine WBC (Auto) 2.0 (0.0-6.0) /HPF Urine RBC (Auto) 2.0 (0.0-6.0) /HPF U Epithel Cells (Auto) 1.0 (0-13.0) /HPF Urine Bacteria (Auto) 1+ (Negative) /HPF Urine Mucus 3+ /HPF 06/25/18 06/25/18 Range/Units 17:34 18:13 WBC (4.5-11.0) K/mm3 RBC (3.65-5.03) M/mm3 Hgb (10.1-14.3) gm/dl Hct (30.3-42.9) % MCV (79-97) fl MCH (28-32) pg MCHC (30-34) % RDW (13.2-15.2) % Plt Count (140-440) K/mm3 Lymph % (Auto) (13.4-35.0) % [place] % (Auto) (0.0-7.3) % Eos % (Auto) (0.0-4.3) % Baso % (Auto) (0.0-1.8) % Lymph # (1.2-5.4) K/mm3 [place] # (0.0-0.8) K/mm3 Eos # (0.0-0.4) K/mm3 Baso # (0.0-0.1) K/mm3 Seg Neutrophils % (40.0-70.0) % Seg Neutrophils # (1.8-7.7) K/mm3 PT 13.5 (12.2-14.9) Sec. INR 0.97 (0.87-1.13) APTT 34.9 (24.2-36.6) Sec. D-Dimer 273.21 H (0-234) ng/mlDDU Sodium (137-145) mmol/L Potassium (3.6-5.0) mmol/L Chloride (98-107) mmol/L Carbon Dioxide (22-30) mmol/L Anion Gap mmol/L BUN (7-17) mg/dL Creatinine (0.7-1.2) mg/dL Estimated GFR ml/min BUN/Creatinine Ratio % Glucose (65-100) mg/dL Calcium (8.4-10.2) mg/dL Total Bilirubin (0.1-1.2) mg/dL AST (5-40) units/L ALT (7-56) units/L Alkaline Phosphatase (35-129) units/L Troponin T < 0.010 (0.00-0.029) ng/mL Total Protein (6.3-8.2) g/dL Albumin (3.9-5) g/dL Albumin/Globulin Ratio % Urine Color (Yellow) Urine Turbidity (Clear) Urine pH (5.0-7.0) Ur Specific [place] (1.003-1.030) Urine Protein (Negative) mg/dL Urine Glucose (UA) (Negative) mg/dL Urine Ketones (Negative) mg/dL Urine Blood (Negative) Urine Nitrite (Negative) Urine Bilirubin (Negative) Urine Urobilinogen (<2.0) mg/dL Ur Leukocyte Esterase (Negative) Urine WBC (Auto) (0.0-6.0) /HPF Urine RBC (Auto) (0.0-6.0) /HPF U Epithel Cells (Auto) (0-13.0) /HPF Urine Bacteria (Auto) (Negative) /HPF Urine Mucus /HPF - EKG Data -: EKG Interpreted by Ms EKG shows normal: sinus rhythm Rate: normal - EKG Data When compared to previous EKG there are: no significant change 06/25/18 20:02 EKG #1 demonstrates a sinus bradycardia, minute, normal axis, normal, not having chest pain, this is not consistent with an ST elevation myocardial infarction. EKG #2. Significant change from prior. Both EKG suggests a questionable incomplete right bundle branch block. Neither EKGs consistent with ST elevation myocardial infarction. Both EKGs appear to be unchanged from prior EKG from 06/05/2018. - Radiology Data Radiology results: pending, report reviewed, image reviewed Critical care attestation.: If time is entered above; I have spent that time in minutes in the direct care of this critically ill patient, excluding procedure time. ED Disposition Clinical Impression: Chest pain, hypertension Disposition: DC-01 TO HOME OR SELFCARE Is pt being admited?: No Does the pt Need Aspirin: No Condition: Stable Instructions: Chest Pain (ED), Hypertension (ED) Additional Instructions: Did not breast-feed for the next 24 hours. Take the medications as needed/directed. Follow up with a snow plow operator within the next 3-5 days. Follow-up with her drainman for a blood pressure checkup within the next 3-5 days. Continue the blood pressure medication as directed. Return to the emergency room right away with new pain, worsened pain, migration of pain, projectile vomiting, change in mental status, confusion, new, worsening or different symptoms. Continue labetalol, 300 mg twice daily. Contact your private gynecology office tomorrow, and informed the front office staff that we have spoken to your covering drainman, Dr. Fine, and she would like to see you by as a follow-up. Please return to the emergency room right away with new, worse or different symptoms. Prescriptions: Labetalol [Normodyne TAB] 300 mg PO BID #90 tablet Famotidine [Pepcid] 20 mg PO BID #30 tablet Acetaminophen [Tylenol Arthritis] 650 mg PO Q6HR PRN #30 tablet.er PRN Reason: Pain Referrals: CRISTHIAN FINE MD [Staff Physician] - 3-5 Days [facility] [Provider Group] - 3-5 Days [facility] [Provider Group] - 3-5 Days
[2018-06-25 16:52] LABS: Eosinophils # (Auto) 0.3 K/mm3 (0.0-0.4); Eosinophils % (Auto) 7.1 % (0.0-4.3); Hematocrit 31.5 % (30.3-42.9); Hemoglobin 9.6 gm/dl (10.1-14.3); Lymphocytes # (Auto) 1.8 K/mm3 (1.2-5.4); Lymphocytes % (Auto) 43.9 % (13.4-35.0); Mean Corpuscular HGB Conc 31 % (30-34); Monocytes # (Auto) 0.5 K/mm3 (0.0-0.8); Monocytes % (Auto) 11.5 % (0.0-7.3); Platelet Count 229 K/mm3 (140-440); Red Blood Count 4.71 M/mm3 (3.65-5.03)
[2018-06-25 16:57] LABS: Mean Corpuscular Volume 67 fl (79-97); Red Cell Distribution Width 20.1 % (13.2-15.2)
[2018-06-25 17:19] LABS: Alanine Aminotransferase 8 units/L (7-56); Albumin 4.1 g/dL (3.9-5); BUN/Creatinine Ratio 17; Blood Urea Nitrogen 10 mg/dL (7-17); Calcium 8.5 mg/dL (8.4-10.2); Hemolysis Index 5
[2018-06-25 17:30] LABS: Bacteria,Urine 1+ /HPF (Negative); Bilirubin,Urine NEG (Negative); Blood,Urine MOD (Negative); Color,Urine Yellow (Yellow); Mucus,Urine 3+ /HPF; Urobilinogen,Urine < 2.0 mg/dL (<2.0)
[2018-06-25 18:24] LABS: INR 0.97 (0.87-1.13); Partial Thromboplastin Time 34.9 Sec. (24.2-36.6)
[2018-06-25] MEDS ORDERED: NACL 0.9% 1000 ML 1,000 ML IV ONE (18:49)
[2018-06-25] MEDS ORDERED: APRESOLINE ONE ×2 (18:53→21:08)
--- NOTE | 2018-06-25 19:45 | XRay Report ---
PROCEDURE: XR CHEST ROUTINE 2V TECHNIQUE: PA and lateral views of the chest HISTORY: post cp COMPARISONS: Chest x-ray dated June 05, 2018 FINDINGS: There is no evidence of focal infiltrate, pneumothorax or pleural fluid collection. The cardiomediastinal silhouette is normal in appearance. The bony structures are notable for scoliosis of the thoracic and lumbar spine. IMPRESSION: 1. No evidence of an acute pulmonary process. If further imaging is required, CT chest may be helpful. This document is electronically signed by Jasmine Christian MD., June 25 2018 07:43:42 PM ET
[2018-06-25] MEDS: APRESOLINE IV ONE ×2 (20:45→21:12)
--- NOTE | 2018-06-25 22:02 | Cat Scan Report ---
PROCEDURE: CT ANGIO CHEST HISTORY: cp recent htn FINDINGS: Contrast-enhanced CT angiography of the chest was performed following the intravenous admin istration of iodinated contrast. Sagittal and coronal minute three-dimensional reformatted images wer e generated. These images demonstrate no CT evidence of pulmonary thromboembolic disease. There is no aortic disse ction. There is no consolidative pulmonary infiltrate. There is no pleural or pericardial effusion. In the upper abdomen the adrenal glands are within normal limits. The visualized portion of the liver and spleen are unremarkable. IMPRESSION: No CT evidence of pulmonary thromboembolic disease This document is electronically signed by Wilberto Huang MD., June 25 2018 10:00:53 PM ET
[2018-06-25 23:16] VITALS: BP 145/88
== END 2018-06-25 23:16 | disposition home or self-care (01) ==
LOC: ED 15:56
DX: O90.89 Other complications of the puerperium, not elsewhere classified (principal); R07.89 Other chest pain; O16.5 Unspecified maternal hypertension, complicating the puerperium
CPT/HCPCS: 36415; 71046; 71275; 80053; 81001; 84484; 85025; 85379; 85610; 85730; 93005; 93010; 96374; 99285; J0360; J7030; Q9967; 96361

== ENCOUNTER 2019-01-28 07:25 | Emergency (ER) | payer BC, OTHER ==
[2019-01-28 08:02] VITALS: BP 126/73
--- NOTE | 2019-01-28 08:21 | Emergency Department Report ---
ED Chest Pain HPI - General Chief Complaint: Chest Pain Stated Complaint: CHEST PAIN Time Seen by Provider: 01/28/19 08:02 Source: patient Mode of arrival: Stretcher Limitations: No Limitations - History of Present Illness Initial Comments: 23-year-old -[place] female presents to the emergency department via EMS, with a complaint of some generalized chest pain/tightness, dizziness and lightheadedness that came on while at work this morning. 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 She says that she did not pass out but became very weak and fell over. She denies hitting her head or any loss of consciousness. Most of the symptoms have since resolved but the patient still feels some generalized weakness. She has a history of cardiomyopathy diagnosed in August a fter giving in May of this year. The patient was seen here for her chest pain and discharged home to follow-up with [facility] cardiology. She did see [facility], in [place], and said that she had an echocardiogram and a stress test and was diagnosed with the cardiomyopathy and placed on carvedilol and lisinopril. She says that she has seen the hoist operator since that time and has been taken off these medications. She denies any tobacco or illicit drug use. No other past medical history. No recent travel or sick contacts at home. Severity scale (0 -10): 5 - Related Data Home Medications Medication Instructions Recorded Confirmed Last Taken Ferrous Sulfate [Feosol 325 MG tab] 325 mg PO TID 05/31/18 05/31/18 1 Day Ago ~05/30/18 Previous Rx's Medication Instructions Recorded Last Taken Type amLODIPine 10 mg PO QDAY #30 tablet 06/09/18 Unknown Rx Acetaminophen [Tylenol Arthritis] 650 mg PO Q6HR PRN #30 tablet.er 06/25/18 Unknown Rx Famotidine [Pepcid] 20 mg PO BID #30 tablet 06/25/18 Unknown Rx Labetalol [Labetalol 200mg TAB] 300 mg PO BID #90 tablet 06/25/18 Unknown Rx Allergies Allergy/AdvReac Type Severity Reaction Status Date / Time No Known Allergies Allergy Unverified 10/01/17 16:58 Heart Score - HEART Score History: Slightly suspicious EKG: Non-specific Age: < 45 Risk factors: No known risk factors Troponin: < normal limit HEART Score: 1 - Critical Actions Critical Actions: 0-3 pts:0.9-1.7%risk of adverse cardiac event.Candidate for discharge ED Review of Systems ROS: Stated complaint: CHEST PAIN Other details as noted in HPI Comment: All other systems reviewed and negative Constitutional: weakness. denies: fever Eyes: denies: eye pain, vision change ENT: denies: ear pain, throat pain Respiratory: shortness of breath. denies: cough Cardiovascular: chest pain. denies: palpitations, edema Gastrointestinal: denies: abdominal pain, vomiting Genitourinary: denies: dysuria, discharge Musculoskeletal: denies: back pain, arthralgia Skin: denies: rash, lesions Neurological: denies: numbness, paresthesias, confusion ED Past Medical Hx - Past Medical History Previous Medical History?: Yes Hx Hypertension: No Hx Congestive Heart Failure: No Hx Diabetes: No Hx Deep Vein Thrombosis: No Hx Renal Disease: No Hx Sickle Cell Disease: No Hx Seizures: No Hx Asthma: No Hx COPD: No Hx HIV: No Additional medical history: cardiomyopathy - Surgical History Past Surgical History?: No - Social History Smoking Status: Never Smoker Substance Use Type: None - Medications Home Medications: Home Medications Medication Instructions Recorded Confirmed Last Taken Type Ferrous Sulfate [Feosol 325 MG tab] 325 mg PO TID 05/31/18 05/31/18 1 Day Ago History ~05/30/18 amLODIPine 10 mg PO QDAY #30 tablet 06/09/18 Unknown Rx Acetaminophen [Tylenol Arthritis] 650 mg PO Q6HR PRN #30 tablet.er 06/25/18 Unknown Rx Famotidine [Pepcid] 20 mg PO BID #30 tablet 06/25/18 Unknown Rx Labetalol [Labetalol 200mg TAB] 300 mg PO BID #90 tablet 06/25/18 Unknown Rx ED Physical Exam - General Limitations: No Limitations - Other Other exam information: GENERAL: The patient is well-developed well-nourished. HENT: Normocephalic. Atraumatic. Patient has moist mucous membranes. No nystagmus. EYES: Extraocular motions are intact. Pupils equal reactive to light bilaterally. NECK: Supple. Trachea is midline. CHEST/LUNGS: Clear to auscultation. There is no respiratory distress noted. HEART/CARDIOVASCULAR: Regular. There is no tachycardia. There is no murmur. ABDOMEN: Abdomen is soft, nontender. Patient has normal bowel sounds. There is no abdominal distention. SKIN: Skin is warm and dry. NEURO: The patient is awake, alert, and oriented. The patient is cooperative. The patient has no focal neurologic deficits. Normal speech. Cranial nerves II through XII grossly intact. No pronator drift. No dysmetria. MUSCULOSKELETAL: There is no tenderness or deformity. There is no limitation range of motion. There is no evidence of acute injury. ED Course Vital Signs 01/28/19 01/28/19 07:31 08:06 Temperature 97.9 F Pulse Rate 79 Respiratory 18 16 Rate Blood Pressure 126/73 O2 Sat by Pulse 98 Oximetry - Consultations Consultation #1: 01/28/19 10:24 I spoke with ROQUE Sarah for [facility]. She was able to see an old EKG from their office that does show the T-wave inversions or abnormalities. She also confirmed negative stress test. The cardiologists agree with the plan for discharge home and outpatient follow-up. NISH score - Nish Score Age > 65: (0) No Aspirin use within the Past 7 Days: (0) No 3 or more CAD Risk Factors: (0) No 2 or more Angina events in past 24 hrs: (0) No Known CAD with more than 50% Stenosis: (0) No Elevated Cardiac Markers: (0) No ST Deviation Greater than 0.5mm: (0) No NISH Score: 0 ED Medical Decision Making - Lab Data Result diagrams: 01/28/19 08:08 01/28/19 08:08 - EKG Data -: EKG Interpreted by Tx EKG shows normal: sinus rhythm, axis, intervals, QRS complexes, ST-T waves (there is flattening of the T waves or some T-wave inversions throughout all leads) Rate: normal - EKG Data When compared to previous EKG there are: changes noted (current EKG shows flattening of T waves or T-wave inversions throughout all leads) Interpretation: other (sinus rhythm, normal axis, normal intervals. There is either flattening of the T waves or T-wave inversions throughout all leads. No ST elevation IA) - Radiology Data Radiology results: image reviewed interpreted by me: Chest x-ray does not show any acute process. There are no pleural effusions, obvious pneumonia and there is no pneumothorax. 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 At the time of my examination the patient is awake, alert, oriented and in no acute distress. She has no focal, motor or sensory deficits in her cranial nerves are intact. EKG did not show any signs of ST elevation IA and just showed some T-wave inversions or flattening of the T waves through the diffuse leads. Her labs have been unremarkable including negative troponin and a negative d-dimer. Normal CBC and metabolic panel. She had an elevated TSH level so a free T4 was obtained that was at the very bottom of the normal range. It is possible the patient has some level of mild hypothyroidism that could be the cause of some of her symptoms. However, this does not require any emergent treatment or admission to the hospital and the patient has been instructed to follow-up with the PCP regarding the thyroid as well as her other symptoms. As per the consultation section, I also spoke with the patient's cardiology group who recommends discharge home with outpatient follow-up. The patient will return to the emergency Department with any further episodes of passing out, worsening of her symptoms, or with any acute distress. - Differential Diagnosis vasovagal, orthostatic hypotension, IA, PE, dysrhythmia Critical Care Time: No Critical care attestation.: If time is entered above; I have spent that time in minutes in the direct care of this critically ill patient, excluding procedure time. ED Disposition Clinical Impression: Lightheaded Syncope Qualifiers: Syncope type: unspecified Qualified Code(s): R55 - Syncope and collapse Chest pain Qualifiers: Chest pain type: unspecified Qualified Code(s): R07.9 - Chest pain, unspecified Disposition: DC-01 TO HOME OR SELFCARE Is pt being admited?: No Condition: Stable Instructions: Chest Pain (ED), Syncope (ED) Additional Instructions: Please follow-up with your primary care physician in the next few days. Please also follow-up with your hoist operator at [facility]. Return to the emergency Department with any further episodes of passing out, worsening of your symptoms, or with any acute distress. Referrals: PRIMARY MD EJ [Primary Care Provider] - 2-3 Days [facility] [Provider Group] - 2-3 Days Forms: Work/School Release Form(ED) Time of Disposition: 10:03
[2019-01-28 08:25] LABS: Hematocrit 33.6 % (30.3-42.9); Hemoglobin 10.5 gm/dl (10.1-14.3); Mean Corpuscular HGB Conc 31 % (30-34); Platelet Count 242 K/mm3 (140-440); Red Blood Count 5.03 M/mm3 (3.65-5.03)
--- NOTE | 2019-01-28 08:28 | XRay Report ---
CHEST 2 VIEWS INDICATION: Chest pain, chest tightness, lightheadedness and dizziness that occurred while at work.. COMPARISON: 06/25/2018 FINDINGS: Support devices: None. Heart: Within normal limits. Lungs/pleura: No acute air space or interstitial disease. No pneumothorax. Additional findings: Mild scoliosis. IMPRESSION: Unremarkable chest films. Signer Name: Jean-Claude Alan Jr, MD Signed: 01/28/2019 8:23 AM Workstation Name: [id number]
[2019-01-28 08:31] LABS: Mean Corpuscular Volume 67 fl (79-97); Red Cell Distribution Width 23.9 % (13.2-15.2)
[2019-01-28 08:45] LABS: BUN/Creatinine Ratio 24; Blood Urea Nitrogen 19 mg/dL (7-17); Calcium 9.1 mg/dL (8.4-10.2); Hemolysis Index 8
[2019-01-28 09:34] LABS: Total Cells Counted 100
[2019-01-28 09:35] LABS: Anisocytosis 2+; Hypochromasia 2+; Ovalocytes Few; Platelet Estimate Consistent w Auto; Poikilocytosis 1+; Schistocytes Rare
== END 2019-01-28 10:15 | disposition home or self-care (01) ==
LOC: ED 07:25
DX: R55 Syncope and collapse (principal); R07.89 Other chest pain; R42 Dizziness and giddiness; Z79.899 Other long term (current) drug therapy
CPT/HCPCS: 36415; 71046; 80048; 84439; 84443; 84484; 85007; 85025; 85379; 93005; 93010; 99284